=== PATIENT | female | born 1930 | race Caucasian/White ===

== ENCOUNTER → 2017-06-07 | Day surgery (SDC) | payer MEDICARE ==
[2017-06-03 15:55] LABS: BASOPHILS % 0.5 % (0.0-1.0); EOSINOPHILS # (AUTO) 0.1 (0.0-0.4); EOSINOPHILS % 1.6 % (0.0-6.0); HEMATOCRIT 39.4 % (34.2-44.1); HEMOGLOBIN 13.2 g/dL (12.0-16.0); LYMPHOCYTES % 26.5 % (18.0-39.1); MEAN CORPUSCULAR HEMOGLOBIN 33.3 pg (28-32); MEAN CORPUSCULAR HGB CONC 33.5 g/dL (31-35); MEAN CORPUSCULAR VOLUME 99.5 fL (81-99); MONOCYTES # (AUTO) 0.5 (0.2-0.8); MONOCYTES % 6.4 % (4.4-11.3); NEUTROPHILS # (AUTO) 4.8 (2.1-6.9); NEUTROPHILS % 64.7 % (38.7-80.0); PLATELET COUNT 182 x10e3/uL (140-360); RED BLOOD COUNT 3.96 x10e6/uL (3.6-5.1); RED CELL DISTRIBUTION WIDTH 11.9 % (11.7-14.4)
[~2017-06-07] MED LIST: ALIGN PO; BUTALBITAL-ASA1 EACH PO; CELEBREX200 MG PO; CYCLOBENZAPRINE PO; CYMBALTA60 MG PO; DETROL1 MG PO; FISH OIL 1,2001 EAC1 PO; FLEXERIL10 MG PO; FOLIC ACID PO; GLUCOSAMINE CH1 EAC5 PO; OS-CAL 500+D T1 EACH PO; PENTASA500 MG OD; PROPOFOL IV EMULSION 10 MG/ML 50 ML VIAL ONE; VIT B PO; VIT B12 INJ; VIT D3 PO; ZESTRIL20 MG PO; [UNRECOGNIZED DRUG - OTHER] PO
== END | disposition home or self-care (01) ==
LOC: OR 06:34
PROVIDERS: ATTEND Internal Medicine Gastroenterology
DX: K50.918 Crohn's disease, unspecified, with other complication (principal); D12.2 Benign neoplasm of ascending colon; K63.3 Ulcer of intestine; Z98.0 Intestinal bypass and anastomosis status; M19.90 Unspecified osteoarthritis, unspecified site; I10 Essential (primary) hypertension; I49.3 Ventricular premature depolarization; Z01.810 Encounter for preprocedural cardiovascular examination; Z01.812 Encounter for preprocedural laboratory examination
CPT/HCPCS: 36415; 45380; 45384; 85025; 88305; 93005

== ENCOUNTER 2017-07-30 19:22 | Inpatient (IN) | payer MEDICARE ==
[~2017-07-30] VITALS: Ht 162.6 cm; Wt 56.7 kg
[~2017-07-30 19:22] MED LIST changes: -PROPOFOL IV EMULSION 10 MG/ML 50 ML VIAL ONE
[2017-07-30] MEDS ORDERED: SODIUM CHLORIDE 0.9% 1000ML 1,000 ML IV STA (19:55)
[2017-07-30] MEDS ORDERED: PANTOPRAZOLE 40 MG 10ML VIAL IV STA (19:55)
[2017-07-30 20:00] VITALS: BP 130/70
[2017-07-30] MEDS ORDERED: ONDANSETRON HCL 4 MG ORAL DISINTEGRATING TAB PO ONE (20:00)
[2017-07-30 20:12] LABS: BASOPHILS % 0.4 % (0.0-1.0); EOSINOPHILS # (AUTO) 0.1 (0.0-0.4); EOSINOPHILS % 1.4 % (0.0-6.0); HEMATOCRIT 40.4 % (34.2-44.1); HEMOGLOBIN 13.6 g/dL (12.0-16.0); LYMPHOCYTES # (AUTO) 2.2 (1.0-3.2); MEAN CORPUSCULAR HGB CONC 33.7 g/dL (31-35); MEAN CORPUSCULAR VOLUME 98.1 fL (81-99); MONOCYTES # (AUTO) 0.5 (0.2-0.8); MONOCYTES % 6.2 % (4.4-11.3); NEUTROPHILS % 63.7 % (38.7-80.0); PLATELET COUNT 141 x10e3/uL (140-360); RED BLOOD COUNT 4.12 x10e6/uL (3.6-5.1)
[2017-07-30 20:22] LABS: INR 1.02; PROTHROMBIN TIME 12.6 seconds (11.9-14.5)
[2017-07-30 20:23] LABS: PARTIAL THROMBOPLASTIN TIME 24.1 seconds (23.8-35.5)
[2017-07-30 20:35] LABS: ALANINE AMINOTRANSFERASE 16 IU/L (0-55); ALBUMIN 3.7 g/dL (3.5-5.0); ALBUMIN/GLOBULIN RATIO 1.3 (0.8-2.0); ALKALINE PHOSPHATASE 56 IU/L (40-150); ANION GAP 10.7 mmol/L (8-16); BLOOD UREA NITROGEN 21 mg/dL (7-26); BUN/CREATININE RATIO 25 (6-25); CALCIUM 9.4 mg/dL (8.4-10.2); CARBON DIOXIDE 27 mmol/L (22-29); CHLORIDE 104 mmol/L (98-107); CREATINE KINASE 64 IU/L (29-168); CREATININE, SERUM 0.85 mg/dL (0.57-1.11); EST GLOMERULAR FILTRATION RATE > 60 ML/MIN (60-); GLUCOSE 110 mg/dL (74-118); LIPASE 31 U/L (8-78); MAGNESIUM 1.5 MG/DL (1.3-2.1); POTASSIUM 3.7 mmol/L (3.5-5.1); SODIUM 138 mmol/L (136-145)
[2017-07-30 20:54] LABS: THYROID STIMULATING HORMONE 4.599 uIU/mL (0.350-4.940)
--- NOTE | 2017-07-30 21:03 | Diagnostic Imaging Report ---
History: Vertigo Comparison studies: Head CT on 01/05/2015 Technique: Axial images were obtained from the skull base to the vertex. Coronal and sagittal reconstructions obtained from the axial data. Findings: Scalp/skull: No abnormalities. No fractures, blastic or lytic lesions. Extra-axial spaces: No masses. No fluid collections. Brain sulci: Appropriate for age. Brain sulci: Mildly prominent. Ventricles: Mild compensatory dilatation. No hydrocephalus. Parenchyma: Subtle hypodensities in the supratentorial white matter are small vessel ischemic changes. No masses, hemorrhage, acute or chronic cortical vascular insults. Sellar/suprasellar region: No abnormalities Craniocervical junction: Patent foramen magnum. No Chiari one malformation. Incidental atherosclerotic calcifications in the carotid siphons. IMPRESSION: No acute abnormalities. No changes when compared to the head CT on 01/05/2015. Persistent findings: 1. Mild generalized volume loss. 2. Mild supratentorial white matter small vessel ischemic changes. Preliminary report provided July 30, 2017 at 2102 hours Signed by: Dr. Triston Padilla M.D. on 07/30/2017 11:09 PM
[2017-07-30] MEDS ORDERED: ASPIRIN 81 MG CHEW TAB PO ONE (21:15)
--- NOTE | 2017-07-30 21:26 | Diagnostic Imaging Report ---
CHEST SINGLE (PORTABLE), 07/30/2017 7:55 PM Technique: CHEST SINGLE (PORTABLE) Comparison: 05/23/2008 Clinical history: Nausea vomiting diarrhea Findings: See Impression Impression: 1. Stable cardiomediastinal silhouette. 2. Large lung volumes versus hyperinflation. Mild bibasilar opacities which may be due to atelectasis/scarring or aspiration. Recommend follow-up upright PA and lateral when able. 3. No effusion or pneumothorax. Signed by: Dr Carmen Aparicio MD on 07/30/2017 9:22 PM
[2017-07-30 21:37] LABS: BILIRUBIN,URINE NEGATIVE (NEGATIVE); CLARITY,URINE CLEAR (CLEAR); COLOR,URINE YELLOW (YELLOW); KETONES,URINE NEGATIVE (NEGATIVE); LEUKOCYTE ESTERASE ,URINE NEGATIVE (NEGATIVE); NITRITE,URINE NEGATIVE (NEGATIVE); PROTEIN,URINE DIPSTICK NEGATIVE (NEGATIVE); URINE UROBILINOGEN 0.2 mg/dL (0.2 - 1)
[2017-07-30 21:48] LABS: BACTERIA,URINE FEW /HPF; EPITHELIAL CELLS,URINE RARE /LPF; RBC,URINE 0-5 /HPF (0-5); WBC,URINE (MAN) 0-5 /HPF (0-5)
[2017-07-30] MEDS ORDERED: ACETAMINOPHEN 325 MG TAB PO PRN (22:30)
--- OUTSIDE RECORDS SUMMARY | 2017-07-30 22:42 | XMS REPORT ---
Author [facility] Address Unknown Phone Unavailable Care Team Providers Care Assistant Director Of Security Name Role Phone ASHLEY BRISCOE Unavailable Unavailable Problems This patient has no known problems. Allergies, Adverse Reactions, Alerts This patient has no known allergies or adverse reactions. Medications This patient has no known medications. Results Test Description Test Time Test Comments Text Results Atomic Results Result Comments CHEST SINGLE (PORTABLE) [place] [address] Patient Name: KEISHA MARR MR #: [id number] : 1930 Age/Sex: 86/F Req #: [id number] Adm Physician: Ordered by: ASHLEY BRISCOE MD Report #: [id number] Location: ER Room/Bed: Procedure: [id number] DX/CHEST SINGLE (PORTABLE) Exam Date: 07/30/17 Exam Time: 2039 REPORT STATUS: Signed CHEST SINGLE ( PORTABLE), 07/30/2017 7:55 PM Technique: CHEST SINGLE (PORTABLE) Comparison: 05/23/2008 Clinical history: Nausea vomiting diarrhea Findings : See Impression Impression: 1. Stable cardiomediastinal silhouette. 2. Large lung volumes versus hyperinflation. Mild bibasilar opacities which may be due to atelectasis/scarring or aspiration. Recommend follow-up upright PA and lateral when able. 3. No effusion or pneumothorax. Signed by: Dr Hesham Aparicio MD on 07/30/2017 9:22 PM Dictated By: HESHAM APARICIO MD 21 Transcribed By: KHUSHBU on 07/30/172121 COPY TO: ASHLEY BRISCOE MD
[2017-07-31] VITALS (9 sets, daily range): BP systolic 130–179; BP diastolic 65–78
[2017-07-31] MEDS: SODIUM CHLORIDE 0.9% 1000ML 1,000 ML IV SCH ×3 (00:29→17:07)
--- NOTE | 2017-07-31 00:32 | Diagnostic Imaging Report ---
ADDENDUM #1 The extracranial segments of the nondominant left vertebral artery are not visualized. The segments are occluded based on the cervical CTA obtained on 07/30/2017. Signed by: Dr. Triston Padilla M.D. on 08/04/2017 12:01 PM ORIGINAL REPORT History: Vertigo Comparison studies: None Technique: 2-D xoum-kw-mvkazq cervical. 3-D qgaf-mj-bsmpks intracranial. Contrast: None Findings: Aortic arch: Obscured by artifacts. Common carotid arteries: Origins obscured by artifacts. Otherwise, no flow abnormalities. Carotid bulbs: No flow abnormalities Internal carotid arteries: No flow abnormalities in spite of artifacts Vertebral arteries: Origins obscured by artifacts. Cannot adequately evaluate in the cervical region. The intracranial segments are tortuous but patent. Basilar artery: No flow abnormalities. Posterior cerebral arteries: No flow abnormalities. Anatomical variants: Acom: Not visualized Pcom: Not visualized Vertebral arteries: Right slightly dominant IMPRESSION: No cervical or intracranial abnormalities in spite of motion artifacts Signed by: Dr. Triston Padilla M.D. on 07/31/2017 12:28 AM
--- NOTE | 2017-07-31 00:32 | Diagnostic Imaging Report ---
ADDENDUM #1 The extracranial segments of the nondominant left vertebral artery are not visualized. The segments are occluded based on the cervical CTA obtained on 07/30/2017. Signed by: Dr. Triston Padilla M.D. on 08/04/2017 12:01 PM ORIGINAL REPORT History: Vertigo Comparison studies: None Technique: 2-D ptnk-pw-cxsvia cervical. 3-D usqe-yk-buzofq intracranial. Contrast: None Findings: Aortic arch: Obscured by artifacts. Common carotid arteries: Origins obscured by artifacts. Otherwise, no flow abnormalities. Carotid bulbs: No flow abnormalities Internal carotid arteries: No flow abnormalities in spite of artifacts Vertebral arteries: Origins obscured by artifacts. Cannot adequately evaluate in the cervical region. The intracranial segments are tortuous but patent. Basilar artery: No flow abnormalities. Posterior cerebral arteries: No flow abnormalities. Anatomical variants: Acom: Not visualized Pcom: Not visualized Vertebral arteries: Right slightly dominant IMPRESSION: No cervical or intracranial abnormalities in spite of motion artifacts Signed by: Dr. Triston Padilla M.D. on 07/31/2017 12:28 AM
--- NOTE | 2017-07-31 00:54 | Diagnostic Imaging Report ---
History: Vertigo Comparison studies: Head CT on 07/30/2017 Technique: Sagittal T2; axial DWI, FLAIR, MPGR, T1, Coronal FLAIR. Intravenous contrast: None Findings: Scalp: Normal in signal . No masses . Bone marrow: Normal in signal intensity. Extra-axial: No masses or fluid collections. Brain sulci: Appropriate for age. Ventricles: Normal in size . No hydrocephalus . Parenchyma: A 5 mm focus of restricted diffusion, in the posterior peripheral left cerebellum, is focal acute nonhemorrhagic vascular insult beyond the scope of resolution for the previous head CT without contrast. Multiple scattered T2 FLAIR hyperintense foci in the supratentorial white matter, kurt and cerebellum are nonspecific small vessel ischemic changes. No masses, hemorrhage, acute or chronic cortical ischemic insults. Suprasellar region: No abnormalities. Craniocervical junction: No abnormalities. Patent foramen magnum. No Chiari one malformation. Vessels: Normal flow-voids in the arteries and sinuses. IMPRESSION: 1. Focal 5 mm nonhemorrhagic acute vascular insult in the left peripheral cerebellum has compromised a peripheral branch of the left pica. Dr. Woody notified of the findings on 07/31/2017 at 0024 hours 2. No additional vascular interval or additional acute abnormalities. Chronic findings: Moderate supratentorial white matter ischemic changes Signed by: Dr. Triston Padilla M.D. on 07/31/2017 12:51 AM
[2017-07-31 06:49] LABS: BASOPHILS % 0.5 % (0.0-1.0); EOSINOPHILS # (AUTO) 0.1 (0.0-0.4); EOSINOPHILS % 1.4 % (0.0-6.0); HEMATOCRIT 37.4 % (34.2-44.1); HEMOGLOBIN 12.5 g/dL (12.0-16.0); LYMPHOCYTES # (AUTO) 1.8 (1.0-3.2); LYMPHOCYTES % 28.5 % (18.0-39.1); MEAN CORPUSCULAR HEMOGLOBIN 32.5 pg (28-32); MEAN CORPUSCULAR HGB CONC 33.4 g/dL (31-35); MEAN CORPUSCULAR VOLUME 97.1 fL (81-99); MONOCYTES # (AUTO) 0.5 (0.2-0.8); MONOCYTES % 7.9 % (4.4-11.3); NEUTROPHILS # (AUTO) 3.9 (2.1-6.9); NEUTROPHILS % 61.5 % (38.7-80.0); PLATELET COUNT 148 x10e3/uL (140-360); RED BLOOD COUNT 3.85 x10e6/uL (3.6-5.1)
[2017-07-31 07:11] LABS: ALANINE AMINOTRANSFERASE 13 IU/L (0-55); ALBUMIN 3.2 g/dL (3.5-5.0); ALBUMIN/GLOBULIN RATIO 1.2 (0.8-2.0); ALKALINE PHOSPHATASE 51 IU/L (40-150); ANION GAP 10.7 mmol/L (8-16); BLOOD UREA NITROGEN 14 mg/dL (7-26); BUN/CREATININE RATIO 20 (6-25); CALCIUM 8.6 mg/dL (8.4-10.2); CARBON DIOXIDE 26 mmol/L (22-29); CHLORIDE 107 mmol/L (98-107); CHOL/HDL RATIO 3.3 (3.0-3.6); CHOLESTEROL 135 MD/DL (0-199); EST GLOMERULAR FILTRATION RATE > 60 ML/MIN (60-); GLUCOSE 81 mg/dL (74-118); HDL CHOLESTEROL 41 MG/DL (40-60); LDL CHOLESTEROL 60 MG/DL (60-130); MAGNESIUM 1.4 MG/DL (1.3-2.1); POTASSIUM 3.7 mmol/L (3.5-5.1); SODIUM 140 mmol/L (136-145); TRIGLYCERIDES 172 MG/DL (0-149)
[2017-07-31 07:13] LABS: CREATINE KINASE 53 IU/L (29-168)
[2017-07-31] MEDS: FAMOTIDINE 20 MG/2 ML VIAL IV SCH ×2 (08:30→21:25)
[2017-07-31] MEDS: ASPIRIN 325 MG TAB EC PO SCH (08:31)
[2017-07-31] MEDS ORDERED: LISINOPRIL 2.5 MG TAB PO SCH (12:00)
[2017-07-31] MEDS: MESALAMINE 500 MG CAPCR PO SCH ×3 (13:03→21:25)
[2017-07-31 15:05] LABS: CREATINE KINASE MB 1.4 ng/mL (0-5.0)
--- NOTE | 2017-07-31 15:50 | Consultation ---
DATE OF CONSULTATION: July 31, 2017 NEUROLOGY CONSULT HISTORY OF PRESENT ILLNESS: Ms. Ibarra is an 86-year-old right-hand dominant woman with no known vascular risk factors, who presented to the emergency center at [facility] on July 30, 2017, with impairment of gait and poor balance. On the evening of admission, the patient was at baptism when she experienced the abrupt onset of the following symptoms: Blurred vision, a heated sensation, nausea with vomiting, unsteady gait, and poor balance with drift towards the right. Ms. Ibarra called her daughter who came to the baptism, helped her mother into her car and took her to her home. The symptoms persisted while the patient was at her home, so her daughter placed her in the car and brought her to the emergency center at [facility] for further evaluation and treatment. Upon arrival in the emergency center, the patient was afebrile with a blood pressure of 171/91 mmHg with a pulse of 65 beats per minute. The patient's neurological examination was documented as follows: Alert. Oriented times 3. Mood/affect normal. Speech is normal. Cranial nerve deficit present, as evidenced by an EOM palsy on the right and ptosis on the right (right eye deviates laterally with upward gaze). Abnormal gait due to moderate ataxia. Unable to ambulate. No motor deficit. No sensory deficit. Reflexes normal. A CT of the brain without contrast was performed and did not show evidence of recent large territorial ischemia, hemorrhage, mass, or mass effect. Ms. Ibarra was admitted to [facility] for further evaluation and treatment. Ms. Ibarra does not report dysarthria, aphasia, weakness, numbness, or dizziness accompanying the above symptoms. She has not experienced similar symptoms previously. The patient does report poor balance for "years", but reports her gait and balance has significantly worsened since yesterday evening. REVIEW OF SYSTEMS: Blurred vision, nausea, vomiting, impairment of gait and balance. Otherwise, the 12-point review of systems is negative. PAST MEDICAL HISTORY: Kidney stones, prior history of migraines, Crohn's disease, idiopathic peripheral neuropathy. PAST SURGICAL HISTORY: Appendectomy in 1962, total hysterectomy in 1971, surgery for bowel blockage in 1969, left shoulder surgery in 1999, cervical fusion (C3-C5) in 2006. HOSPITALIZATIONS: Surgeries/procedures listed, childbirth times 3. FAMILY HISTORY: The patient's paternal and maternal grandparents are . Their medical histories are unknown. The patient's father is . His cause of and medical history are unknown. Ms. Ibarra reports her father when she was 10 years old. The patient's mother is at the age of 94 years. She had arthritis. The patient has 1 sister and 1 brother, both of whom are alive. The patient's sister has high blood pressure and high cholesterol. Her brother has coronary artery disease. The patient has 3 children, all of whom are alive. One daughter has migraines. Two daughters have osteoporosis. SOCIAL HISTORY: The patient is . She is a high school graduate. 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 Ms. Ibarra does not report current or prior tobacco, alcohol, or recreational drug use. HOME MEDICATIONS 1. Fioricet 1 capsule as needed for pain. 2. Celebrex 200 mg by mouth every other day, 3. Cymbalta 60 mg by mouth daily. 4. Glucosamine chondroitin I tablet by mouth daily. 5. Lisinopril 2.5 mg by mouth daily. 6. Mesalamine 500 mg by mouth 4 times daily. 7. Folic acid 1 mg by mouth daily. 8. 1 tablet by mouth daily. 9. Vitamin B12 1000 mcg injection monthly. 10. Vitamin B 100 mg by mouth daily. 11. Vitamin D3 one tab by mouth daily. The patient does not report taking aspirin, Plavix, or other antiplatelet/anticoagulant medications daily. ALLERGIES: NO KNOWN DRUG ALLERGIES. NO KNOWN FOOD ALLERGIES. NO KNOWN ALLERGIES TO LATEX. NO KNOWN ALLERGIES TO IODINE OR OTHER CONTRAST MATERIALS. PHYSICAL EXAMINATION VITAL SIGNS: Height 64 inches and weight 125 pounds. BMI is 21.5 kg per meter squared. Blood pressure 151/65 mmHg, pulse 71 beats per minute, respiratory rate 16 breaths per minute, oxygen saturation 95% on room air. GENERAL: The patient is awake and alert. Does not appear distressed. HEENT: Normocephalic and atraumatic. Pupils are equal, round and reactive to light. Moist mucous membranes. NECK: Supple. No appreciable thyromegaly. No appreciable carotid bruits. CARDIOVASCULAR: S1 and S2. Regular rate and rhythm. No murmurs, rubs, or gallops. RESPIRATORY: Clear to auscultation bilaterally. No wheezes, rhonchi or rales. EXTREMITIES: The skin is warm and dry. No clubbing, cyanosis or edema. The posterior tibial and dorsalis pedis pulses are 2+ and symmetric. SKIN: No rashes or lesions. NEUROLOGIC: Memory/attention: The patient is awake and alert, oriented to person, place, time, and situation. CRANIAL NERVES: Cranial nerve 1 is not tested. Cranial nerve II, III, IV, and : Pupils are equal and round, react briskly to light (from 4 mm to 2 mm). Extraocular movements intact. No nystagmus. Cranial nerve V: Sensation to light touch and pinprick is intact in the bilateral V1-V3 distributions. Strength of the temporalis and mastoid muscles is within normal limits. Cranial VII: The face is symmetric as are all facial movements. Strength is within normal limits. Cranial nerve VIII: Hearing is diminished to finger rub bilaterally. Cranial nerve IX and X: The soft palate elevates equally and symmetrically. Cranial nerve XI: Normal strength of the bilateral sternocleidomastoid and trapezius muscles. Cranial nerve XII: The tongue protrudes in the midline and moves symmetrically from side to side. STRENGTH: Bulk is normal. The patient is able to maintain both arms against gravity for more than 10 seconds each. She is able to maintain both legs against gravity for more than 5 seconds each. Strength is 5/5 in all muscles examined. Tone is normal. DEEP TENDON REFLEXES: Are 2+ and symmetric at the triceps, biceps, brachioradialis. And patellas. Deep tendon reflexes are absent and symmetric at the Achilles. Plantar responses are flexor bilaterally. Absent clonus. SENSATION: Intact to light touch and pinprick in both arms and both legs. CEREBELLAR: Zrjuyn-fnnt-erxbya and heel-ballesteros movements are intact without dysmetria or other impairment. Rapid alternating movements are mildly impaired on the right. GAIT: Deferred. SPEECH: Spontaneous speech is normal without appreciable dysarthria or aphasia. Repetition is intact. INVOLUNTARY MOVEMENTS: None. PRONATOR DRIFT: None. LABORATORY DATA: Sodium 140, potassium 3.7, chloride 107, carbon dioxide 26, anion gap 10.7. BUN 14, creatinine 0.7, estimated GFR greater than 60. BUN to creatinine ratio 20. Glucose 81. Calcium 8.6. Magnesium 1.4. Total bilirubin 1, AST 22, ALT 13, alkaline phosphatase 51, total protein 5.8. Albumin 3.2. Globulin 2.6. Albumin to globulin ratio 1.2. Creatinine kinase 6453. CK-MB 1.5 and 1.1. Troponin I less than 0.001, less than 0.001. Lipase 31. TSH 4.599. B-natriuretic peptide 51.5. Total cholesterol 135, triglycerides 172, LDL 60, HDL 41. CBC with differential and platelets reveals a white blood cell count of 6.34 with a normal differential. Hemoglobin and hematocrit are 12.5 and 37.4, respectively. Platelet count is 148,000. PT 12.6, INR 1.02 and PTT 24.1. Urinalysis was unremarkable. DIAGNOSTIC STUDIES: EKG on July 30, 2017, is normal sinus rhythm at [address] of the brain without contrast on July 30, 2017, no acute abnormalities. No changes when compared to the CT of the brain on January 05, 2015. Mild generalized volume loss. Mild supratentorial white matter small vessel ischemic changes. MRI of brain without contrast on July 30, 2017, on my review, there is a small area of acute ischemia of the peripheral left cerebellum. There is diffuse cerebral atrophy, appropriate for age. There is mild to moderate chronic small vessel ischemic disease. MRA of the brain and neck without contrast on July 30, 2017, there is no hemodynamically significant extra hyphen or intracranial atherosclerosis. ASSESSMENT AND PLAN: Ms. Ibarra is an 86-year-old right-hand dominant woman without diagnosed vascular risk factors admitted with an acute left peripheral cerebellar stroke. Her neurological examination is nonfocal. However, the patient did not ambulate as part of her neurological examination. The patient's laboratory data and diagnostic studies have been reviewed and are documented above. RECOMMENDATIONS: Are as follows: 1. Hemoglobin A1c. 2. Echocardiogram. 3. Aspirin 325 mg by mouth daily for stroke prophylaxis. 4. Allow permissive hypertension for 24-48 hours post stroke. May begin to normalize blood pressure tomorrow, August 01, 2017. 5. The patient's total and LDL cholesterol are at goal. However, numerous studies have demonstrated benefit of statin medications beyond the cholesterol lowering capabilities for stroke prophylaxis. Therefore, a very low-dose statin (simvastatin 10 mg by mouth at bedtime daily) will be prescribed for stroke prophylaxis. 6. Followup hemoglobin A1c. Tight glycemic control. 7. Speech and physical therapy consultations will be ordered. 8. GI prophylaxis with Pepcid 20 mg IV every 12 hours. DVT prophylaxis with Lovenox 40 mg subcutaneously daily. 9. Defer treatment of the remaining medical comorbidities to the primary and other services following the patient. Thank you for this consultation. I will continue to follow this patient while she remains in hospital. Time spent 50 minutes. Job#: [id number] PETE RODRIGUES
--- NOTE | 2017-07-31 16:26 | History and Physical ---
CLINICAL HISTORY: This is an 86-year-old white woman known to our service from previous evaluations. Admitted via the emergency room because of a left cerebellar stroke. This patient as history of Crohn disease treated with Pentasa by Dr. Savana Prajapati. There is history of unclear reasons taking Cymbalta. She denies any depression. On the day of admission while at [employer]azidism, she developed sudden dizziness associated with vomiting. She noticed incoordination. She came to the emergency room, was felt to perhaps also have a left 3rd nerve palsy. A CT scan of the head was negative. MRI showed left cerebellar stroke that was acute. The MRA of the head and MRA of the neck were negative. EKG showed no atrial fibrillation with normal sinus rhythm. She is being admitted for further evaluation and treatment. PAST MEDICAL HISTORY: Remarkable for the above-mentioned Crohn disease. She is taking an aspirin combination medication already together with butalbital and caffeine. She is taking Celebrex, Cymbalta, glucosamine chondroitin, folic acid, B12 injections, , vitamin D. She is also taking Pentasa and lisinopril as mentioned above. Past medical history is also remarkable for hypertension. PAST SURGICAL HISTORY: Past surgery included bowel surgery, hysterectomy, right shoulder surgery, appendectomy, cervical spine fusion, laparotomy. REVIEW OF SYSTEMS: Noncontributory. PERSONAL AND SOCIAL HISTORY: Denies drinking, smoking. FAMILY HISTORY: No malignancies. PHYSICAL EXAMINATION: GENERAL: She is alert, coherent. Appears to be comfortable. CARDIOVASCULAR: Jugular veins are not distended. S1 and S2 are regular. There are no appreciable murmurs. RESPIRATORY: Clear. ABDOMEN: Soft. Bowel sounds are present. EXTREMITIES: No cyanosis, clubbing or edema. LABORATORY: Studies as mentioned above. The white count is 7800, hemoglobin 13.6, platelet count 141,000. Urinalysis is unremarkable. INR is 1.02. Electrolytes are normal. BUN is 21. Creatinine is 0.85. Lipase 31. TSH 4.5. IMPRESSION: 1. Acute left cerebellar stroke with ataxia. 2. History of unsteadiness on her feet, requiring her to get up slowly. 3. History of hypertension, treated with lisinopril. 4. Dizziness and vomiting, result of the stroke. 5. Reactive hypertension. Probably does not require additional management. 6. Crohn's disease. 7. History of B12 deficiency, on chronic B12 injection. 8. Cymbalta but denying a history of depression. Possibly can be discontinued. RECOMMENDATIONS: Neurology consultation. Consider adding Plavix to her regimen. Physical therapy. Neurologic evaluation. Job#: [id number] EV cc:MD BONG BHATIA MD
[2017-07-31] MEDS: ONDANSETRON HCL 4 MG ORAL DISINTEGRATING TAB PO PRN (17:01)
[2017-07-31] MEDS: ENOXAPARIN SOD INJ 40 MG/0.4 ML SYR SC SCH (17:07)
[2017-07-31] MEDS: SIMVASTATIN 20 MG TAB PO SCH (21:25)
[2017-08-01] VITALS (7 sets, daily range): BP systolic 152–194; BP diastolic 70–88
[2017-08-01] MEDS: ONDANSETRON HCL 4 MG ORAL DISINTEGRATING TAB PO PRN ×3 (00:59→14:44)
[2017-08-01] MEDS ORDERED: LISINOPRIL 20 MG TAB PO ONE (01:15)
[2017-08-01] MEDS: SODIUM CHLORIDE 0.9% 1000ML 1,000 ML IV SCH ×2 (05:06→15:16)
[2017-08-01] MEDS ORDERED: LISINOPRIL 2.5 MG TAB PO SCH (09:00)
[2017-08-01] MEDS: MESALAMINE 500 MG CAPCR PO SCH ×6 (09:00→22:38)
[2017-08-01] MEDS ORDERED: LISINOPRIL 20 MG TAB PO SCH (09:00)
[2017-08-01] MEDS ORDERED: CLOPIDOGREL BISULFATE 75 MG TAB PO SCH (09:00)
[2017-08-01] MEDS: ASPIRIN 325 MG TAB EC PO SCH ×2 (09:16→13:58)
[2017-08-01] MEDS: LISINOPRIL 10 MG TAB PO SCH ×2 (09:16→09:46)
[2017-08-01] MEDS: FAMOTIDINE 20 MG/2 ML VIAL IV SCH ×2 (09:16→21:39)
--- NOTE | 2017-08-01 09:19 | Cardiology Report ---
DATE OF STUDY: July 30, 2017 ECHOCARDIOGRAM M-MODE: Normal chamber sizes. Left ventricular hypertrophy. Normal contractility. Normal mitral and aortic valves. No pericardial effusion. SECTOR SCAN: Normal chamber sizes. Mild left ventricular hypertrophy. Normal contractility. Normal mitral, aortic and tricuspid valves. No pericardial effusion. CARDIAC DOPPLER STUDY WITH COLOR: There are 2+ tricuspid regurgitation and 1+ mitral regurgitation. Pulmonary artery systolic pressure estimated at 26 mmHg. There is evidence of diastolic dysfunction. CONCLUSIONS 1. Mild left ventricular hypertrophy with ejection fraction of 65%. 2. Suggestion of impaired relaxation with diastolic dysfunction. 3. Mild mitral regurgitation. 4. Moderate tricuspid regurgitation. Job#: [id number] cc:MARIA EUGENIA MORELOS M.D.
--- NOTE | 2017-08-01 09:28 | Cardiology Report ---
DATE OF STUDY: August 01, 2017 DOPPLER SCAN OF CAROTIDS The left and right carotid arteries were interrogated using the duplex scanning method. Left carotid artery shows mild intimal thickening and plaquing without high-grade stenosis or flow impairment. Left vertebral flow appears to be occluded. Right carotid artery shows mild intimal thickening and plaquing without high-grade stenosis or flow impairment. Right vertebral flow appears to be antegrade. CONCLUSIONS 1. Occluded left vertebral artery. 2. Mild intimal thickening and plaquing bilaterally. 3. Right vertebral flow appears to be in normal direction bilaterally. Job#: [id number] RI cc: BONG WARD MD
--- NOTE | 2017-08-01 12:44 | Diagnostic Imaging Report ---
Examination: Cervical CT Angiogram with Contrast Clinical indication:Evaluate for carotid stenosis. Comparison studies:Intracranial and cervical MRA performed July 30, 2017. Technique: Axial images were obtained from the thoracic inlet. Coronal and sagittal images reconstructed from the axial data. Intravenous contrast: 100 cc of [id number]. Computer generated maximum intensity projection images were performed of the bilateral carotid bifurcations and the aortic arch with bilateral common carotid and cervical internal carotid arteries on a separate workstation. Degree of stenosis at the carotid bulbs, if present, will be calculated using NASCET criteria where the smallest diameter at the location of stenosis is compared to the diameter of the more distal non-diseased vessel lumen. Findings: Aortic arch and major vessels: Patent. Common carotid arteries: Patent. Cervical carotid bifurcations: Right: Patent. Left :Patent. Internal carotid arteries: Right: Patent. Distal cervical loop. Left: Patent. Distal cervical loop. Vertebral arteries: Patent on the right. Completely occluded from the distal V1 segment through V2 segment. The left V3 and V4 segments are opacified with contrast and is most probably from retrograde flow from the contralateral/right vertebral or basilar arteries. There is mild luminal irregularity of the right greater than left V3 segments, concerning for fibromuscular dysplasia. Additional findings: Anterior cervical discectomy and fusion from C3 through C6. IMPRESSION: 1. 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 2. 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 The above findings were discussed with Jennifer, nurse in care of Ms Ibarra, on 08/01/2017 at 1235 hours. Signed by: Dr. Kinjal De La Rosa M.D. on 08/01/2017 12:41 PM
[2017-08-01] MEDS ORDERED: IOPAMIDOL 370 MG/ML 200 ML INFUS..BTL INJ ONE (14:43)
[2017-08-01] MEDS ORDERED: SODIUM CHLORIDE 0.9% 50ML 50 ML ONE (14:43)
[2017-08-01] MEDS ORDERED: PROMETHAZINE 12.5MG/ NACL 0.9% 12.5 MG/50 ML BAG IV PRN (16:15)
[2017-08-01] MEDS: CLONIDINE HCL 0.1 MG TAB PO SCH (17:09)
[2017-08-01] MEDS: ENOXAPARIN SOD INJ 40 MG/0.4 ML SYR SC SCH (17:09)
--- NOTE | 2017-08-01 17:40 | Consultation ---
DATE OF CONSULTATION: August 01, 2017 REFERRING PHYSICIAN: Dr. Aurelio Aleman. I would like to thank Dr. Aleman for asking me to see Ms. Ibarra in consultation. REASON FOR CONSULTATION: 1. 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 2. Patient with history of migraine headaches. 3. Idiopathic peripheral polyneuropathy. HISTORY: An 86-year-old female who was in her normal state of health when she was admitted to this facility 2 days ago with impairment of gait and poor balance. The patient came to the hospital with some elevated blood pressure. The patient underwent workup and CT of the brain showed no acute abnormalities. MRI showed a small area of acute ischemia in the peripheral left cerebellar area. The patient has been started on therapy and still not back to baseline. I am being asked to evaluate for rehab needs. PAST MEDICAL HISTORY: Renal lithiasis, history of Crohn's disease, idiopathic peripheral neuropathy, migraine headaches. PAST SURGICAL HISTORY: Appendectomy, hysterectomy, left shoulder surgery, cervical fusion. FAMILY HISTORY: Positive for arthritis, hypertension, hyperlipidemia. SOCIAL HISTORY: Lives by herself in a one story home, and is otherwise independent. Danced and did yoga 2 times a week and walked around her neighborhood four times a week. Did not use any kind of assist device and was otherwise independent. HABITS: Nonsmoker and nondrinker. ALLERGIES: NO KNOWN DRUG ALLERGIES. White cell count 6.3. Hemoglobin 12.4, hematocrit 37.4, platelets 148,000, sodium 140, potassium 3.7, BUN 14, creatinine 4.7. She also had a carotid Doppler which showed occluded left vertebral artery, mild intimal thickening and plaquing bilaterally, right vertebral flow appears to be normal direction bilaterally. She had a head MRA which showed no cervical or intracranial abnormalities. Neck MRA showed no cervical or intracranial abnormalities. Review of therapy notes showed that she walks about 25 feet, slow and steady gait. for bed mobilities. She is still having some impairment with her coordination. In fact, when she turns her head sometimes she gets lightheaded/not quite dizzy but very similar feeling. PHYSICAL EXAMINATION VITAL SIGNS: Temperature 96.5, respirations 18, heart rate of 59, blood pressure 161/71. GENERAL: Awake, alert, oriented x3, in no apparent distress. HEENT: Eyes: Gaze is conjugate. Visual pinto are intact. Oral: Tongue is midline. NECK: Supple. HEART: Regular rate and rhythm. LUNGS: Clear. ABDOMEN: Nontender, nondistended. EXTREMITIES: Full range of motion of the arms as well as the legs. MANUAL MUSCLE TESTING: There is 5/5 strength in arms and legs bilaterally throughout. Xtmxpb-cflu-mdpdnk tracing is within normal limits. There is no increased tone with passive range of motion of the arms and legs. DTRs are 2+/4+ bilaterally. IMPRESSION 1. 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 2. Hypertension. 3. The patient with some history of neuropathy. 4. History of Crohn's disease. PLAN: The patient would make an excellent patient rehab candidate. She lives by herself and needs to be more functional. Her strength remains good and she should continue to improve overall. Will follow along with you. Thank so much again for allowing me to participate in the care of this very pleasant patient. Discussed with family and will check with insurance for transfer to inpatient rehab. Job#: [id number]
[2017-08-01] MEDS: SIMVASTATIN 20 MG TAB PO SCH (22:38)
[2017-08-02] VITALS: BP 135/63
[2017-08-02] MEDS: SODIUM CHLORIDE 0.9% 1000ML 1,000 ML IV SCH ×4 (00:30→20:30)
[2017-08-02 04:00] VITALS: BP 158/74
[2017-08-02 08:08] VITALS: BP 160/70
[2017-08-02] MEDS: FAMOTIDINE 20 MG/2 ML VIAL IV SCH ×2 (08:41→21:44)
[2017-08-02] MEDS: ASPIRIN 325 MG TAB EC PO SCH (08:41)
[2017-08-02] MEDS: CLONIDINE HCL 0.1 MG TAB PO SCH ×2 (08:42→16:55)
[2017-08-02] MEDS: LISINOPRIL 10 MG TAB PO SCH (08:42)
[2017-08-02] MEDS: MESALAMINE 500 MG CAPCR PO SCH ×4 (08:42→21:44)
[2017-08-02 11:54] VITALS: BP 132/63
[2017-08-02 16:10] VITALS: BP 168/72
[2017-08-02] MEDS: ENOXAPARIN SOD INJ 40 MG/0.4 ML SYR SC SCH (16:55)
[2017-08-02 20:00] VITALS: BP 144/67
[2017-08-02] MEDS: SIMVASTATIN 20 MG TAB PO SCH (21:44)
[2017-08-03] VITALS (7 sets, daily range): BP systolic 148–165; BP diastolic 68–77
[2017-08-03] MEDS: SODIUM CHLORIDE 0.9% 1000ML 1,000 ML IV SCH ×2 (07:30→16:30)
[2017-08-03] MEDS: FAMOTIDINE 20 MG/2 ML VIAL IV SCH ×2 (08:27→21:27)
[2017-08-03] MEDS: CLONIDINE HCL 0.1 MG TAB PO SCH ×2 (08:27→17:00)
[2017-08-03] MEDS: ASPIRIN 325 MG TAB EC PO SCH (08:27)
[2017-08-03] MEDS: LISINOPRIL 10 MG TAB PO SCH ×2 (08:28→10:15)
[2017-08-03] MEDS: MESALAMINE 500 MG CAPCR PO SCH ×4 (09:00→21:27)
[2017-08-03] MEDS: ENOXAPARIN SOD INJ 40 MG/0.4 ML SYR SC SCH (17:00)
[2017-08-03] MEDS: SIMVASTATIN 20 MG TAB PO SCH (21:27)
[2017-08-04] VITALS: BP 156/68
[2017-08-04] MEDS: SODIUM CHLORIDE 0.9% 1000ML 1,000 ML IV SCH (03:26)
[2017-08-04 04:00] VITALS: BP 152/71
[2017-08-04 08:00] VITALS: BP 171/75
[2017-08-04] MEDS: ASPIRIN 325 MG TAB EC PO SCH (08:15)
[2017-08-04] MEDS: LISINOPRIL 10 MG TAB PO SCH (08:15)
[2017-08-04] MEDS: FAMOTIDINE 20 MG/2 ML VIAL IV SCH (08:15)
[2017-08-04] MEDS: MESALAMINE 500 MG CAPCR PO SCH ×2 (08:15→12:11)
[2017-08-04] MEDS ORDERED: CLONIDINE HCL 0.2 MG TAB PO SCH (09:00)
[2017-08-04] MEDS ORDERED: CLONIDINE HCL 0.1 MG TAB PO SCH (09:00)
[2017-08-04 10:00] VITALS: BP 132/75
[2017-08-04] MEDS ORDERED: AMLODIPINE BESYLATE 5 MG TAB PO ONE ×2 (10:15→10:30)
[2017-08-04] MEDS ORDERED: LOVENOX40 MG/0.4 SC (10:19)
[2017-08-04] MEDS ORDERED: ASPIRIN ENTERI325 MG PO (10:19)
[2017-08-04] MEDS ORDERED: NORVASC5 MG PO (10:19)
[2017-08-04] MEDS ORDERED: SIMVASTATIN20 MG PO (10:19)
[2017-08-04] MEDS ORDERED: ACETAMINOPHEN325 M1 PO (10:19)
[2017-08-04] MEDS ORDERED: FAMOTIDINE20 MG/2 ML IV (10:19)
[2017-08-04] MEDS ORDERED: LISINOPRIL10 MG PO (10:19)
[2017-08-04] MEDS ORDERED: CATAPRES0.2 MG PO (10:19)
[2017-08-04 12:20] VITALS: BP 123/57
--- NOTE | 2017-08-04 14:46 | Discharge Summary ---
CLINICAL HISTORY: This is an 86-year-old white woman admitted via the emergency room because of left cerebellar CVA. Please refer my previous dictation concerning details of current illness, past medical history, personal and social history, family history, review of systems, physical examination, initial laboratory studies. HOSPITAL COURSE: The patient was found to have an occluded left cerebral artery with additional disease further distally. She had an acute left cerebellar CVA with ataxia. She had persistent vomiting, nausea and unsteadiness, and eventually improved. She needed rehabilitation. She was sent to Dr. Blake Solis at [place]. Insurance gave approval. The patient was accordingly transferred. DISCHARGE DIAGNOSES 1. 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 2. Hypertension. 3. Crohn's disease. 4. History of B12 deficiency. During this hospitalization, the patient denied any depression. Cymbalta was discontinued at her request. DISCHARGE MEDICATIONS: Otherwise are: 1. Enoxaparin to prevent DVT at low dose. 2. Simvastatin 3. Clonidine. 4. Mesalamine. 5. Famotidine. 6. Tylenol. 7. Lisinopril 20 mg per day. FREDDIE TAN MD Job#: [id number] RI cc:MARIA EUGENIA MORELOS M.D.
[2017-08-05] MEDS ORDERED: AMLODIPINE BESYLATE 5 MG TAB PO SCH (09:00)
== END 2017-08-04 15:28 | DRG 65 ==
LOC: ER 19:22 → MED/SURG 22:39
PROVIDERS: ADMIT Internal Medicine Cardiovascular Disease; ATTEND Internal Medicine Cardiovascular Disease
CPT/HCPCS: 36415; 70450; 70498; 70544; 70547; 70551; 71045; 80053; 80061; 81001; 82550; 82553; 83036; 83690; 83735; 83880; 84443; 84484; 85025; 85610; 85730; 87086; 93005; 93306; 93880; 96360; 96374; 99284; J1650; J2550; J7030; Q9967

== ENCOUNTER → 2017-12-20 | Outpatient (CLI) | payer MEDICARE ==
[~2017-12-20] MED LIST changes: +ACETAMINOPHEN325 M1 PO; +ASPIRIN ENTERI325 MG PO; +CATAPRES0.2 MG PO; +FAMOTIDINE20 MG/2 ML IV; +LISINOPRIL10 MG PO; +LOVENOX40 MG/0.4 SC; +NORVASC5 MG PO; +SIMVASTATIN20 MG PO
--- NOTE | 2017-12-20 16:16 | Diagnostic Imaging Report ---
EXAMINATION: MRI of the brain without contrast. HISTORY: Cerebellar ataxia, balance for the last 2 weeks COMPARISON: Brain MRI of 07/30/2017 TECHNIQUE: Sagittal T2; axial DWI, T2, FLAIR, T1-IR, T2 gradient echo; coronal FLAIR. IMAGE QUALITY: Adequate. FINDINGS: Parenchyma: 1. Persistent xzay-do-jzvhsdhp supra and infratentorial chronic microvascular ischemic changes and small chronic lacunar infarcts in the bilateral thalami and small cortical infarcts in the bilateral cerebellar hemispheres. 2. No mass, hemorrhage, acute infarcts. Skull: Unremarkable. Vessels: Expected flow voids present in the major arteries and dural sinuses. Extra-axial spaces: No abnormal signal intensity or mass effect. Brain volume: Within normal limits for age. Ventricles: No hydrocephalus or displacement. Foramen magnum: Unremarkable. Sella: Unremarkable. Paranasal / mastoid sinuses: No significant inflammatory disease. Incidental findings: Partially visualized degenerative and postsurgical changes of the cervical spine. IMPRESSION: 1. No acute infarct. 2. Unchanged moderate chronic microvascular ischemic changes and small chronic infarcts. Signed by: Dr. Clare Morales M.D. on 12/20/2017 4:13 PM
== END ==
LOC: MRI 14:23
PROVIDERS: ATTEND Internal Medicine Cardiovascular Disease
DX: G32.81 Cerebellar ataxia in diseases classified elsewhere (principal)
CPT/HCPCS: 70551

== ENCOUNTER 2018-06-04 10:55 | Observation (INO) | payer MEDICARE ==
[~2018-06-04] VITALS: Ht 162.6 cm; Wt 56.7 kg
--- OUTSIDE RECORDS SUMMARY | 2018-06-04 10:58 | XMS REPORT | CCD ---
Author Author Auto Generated Organization [facility] Address Unknown Phone Unavailable Care Team Providers Care Maintenance Technician Name Role Phone Nuha Louis CP Allergies, Adverse Reactions, Alerts Substance Reaction Status NKDA Active
--- OUTSIDE RECORDS SUMMARY | 2018-06-04 10:58 | XMS REPORT ---
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
--- OUTSIDE RECORDS SUMMARY | 2018-06-04 10:58 | XMS REPORT ---
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
--- OUTSIDE RECORDS SUMMARY | 2018-06-04 10:58 | XMS REPORT | Summary of Care ---
Author Author [facility] [place] Organization [facility] [place] Address Unknown Phone Unavailable Encounter HQ Encntr_alias(FIN) [id number] Date(s): 04/03/15 - 04/03/15 [facility] [place] [address], [place] [address] [phone] Discharge Disposition: Home Attending Physician: Osmany Gallagher MD Vital Signs No data available for this section Problem List No data available for this section Allergies, Adverse Reactions, Alerts Substance Reaction Severity Status NKDA Active Medications No data available for this section Results No data available for this section Immunizations No data available for this section Procedures No data available for this section Social History No data available for this section Assessment and Plan No data available for this section
--- OUTSIDE RECORDS SUMMARY | 2018-06-04 10:58 | XMS REPORT ---
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
--- OUTSIDE RECORDS SUMMARY | 2018-06-04 10:58 | XMS REPORT | Continuity of Care Document ---
Author Author [facility] Address Unknown Phone Unavailable Problems Problem Status Onset Date Classification Date Reported Comments Source R51 - HEADACHE Active 03/24/2015 [facility] [place] SPEECH PHONATION DYSPHONIA 784.42, VOICAL CORD DISCORDE Active 03/21/2000 [facility] SPEECH PHONATION DYSPHONIA 784.42, VOICA Active 03/21/2000 [facility] Cervical radiculopathy Active Problem 02/24/2017 Simon Mary Cervical postlaminectomy syndrome Active Problem 02/24/2017 Simon Hernandez Cervical facet joint syndrome Active Problem 02/24/2017 Simon Hernandez Chronic pain syndrome Active Problem 02/24/2017 Simon Hernandez Cervical spondylosis Active Problem 02/24/2017 Simon Hernandez Degeneration of cervical disc without myelopathy Active Problem 02/24/2017 Simon Hernandez Unilateral primary osteoarthritis, right knee Active Problem 06/02/2018 Simon Hernandez Osteopenia Active Problem 06/02/2018 Simon Hernandez Generalized osteoarthritis Active Problem 06/02/2018 Simon Hernandez Vitamin D deficiency Active Problem 06/02/2018 Simon Hernandez Disorder of bone density and structure, unspecified Active Problem 06/02/2018 Simon Hernandez bed bug exterminator use of non-steroidal anti-inflammatories (NSAID) Active Problem 06/02/2018 Simon Hernandez Neck pain Active Problem 06/02/2018 Simon Hernandez Osteoarthritis of right knee Active Problem 06/02/2018 Simon Hernandez Enthesopathy of knee Active Problem 06/02/2018 Simon Hernandez Knee pain, right Active Problem 06/02/2018 Simon Hernandez Inflammatory osteoarthritis Active Problem 06/02/2018 Simon Hernandez Medications Medication Details Route Status Patient Instructions Ordering Provider Order Date Source Alendronate Sodium TAKE 1 TABLET BY MOUTH WEEKLY Orally Active 35 MG Orally once a week El 05/31/2018 Simon Hernandez Hydroxychloroquine Sulfate 1 tablet with food or milk Orally Active 200 MG Orally Once a day El 05/23/2018 Simon Hernandez Alendronate-35 mg weekly one tablet orally Active 35 mg orally once a week El 07/01/2017 Simon Hernandez Cymbalta 1 capsule Orally Active 60 MG Orally Once a day El 06/03/2017 Simoncarmen Hernandez Cymbalta 1 capsule Orally Active 60 MG Orally Once a day El 05/31/2017 Simon Hernandez Vitamin D as directed Orally Active 31680 U Orally [facility] Simon Hernandez Celebrex 1 capsule Orally Active 200 MG Orally Once a day [facility] Simon Hernandez Cymbalta 1 capsule Orally Active 60 MG Orally Once a day [facility] Simon Hernandez Acetaminophen-Codeine #3 1 tablet as needed Orally Active 300- 30 MG Orally every 8 hrs PRN [facility] Simon Hernandez Amlodipine Besylate 1 tablet Orally Active 2.5 MG Orally Once a day [facility] Simon Hernandez Pentasa 2 capsules Orally Active 500 MG Orally Four times a day [facility] Sm[facility] Hernandez Folic Acid 1 tablet Orally Active 1 MG Orally Once a day [facility] Simon Hernandez Oxybutynin Chloride ER 1 tablet Orally Active 10 MG Orally Once a day [facility] Simon Hernandez Align as directed Orally Active Orally [facility] Simon Hernandez Alendronate Sodium TAKE 1 TABLET BY MOUTH ONCE A WEEK NA Active 35 MG [facility] Simon Hernandez Celebrex TAKE ONE CAPSULE BY MOUTH EVERY DAY WITH FOOD NA Active 200 MG [facility] Simon Hernandez Glucosamine Chond Complex/MSM 2 tablets Orally Active Orally once a day [facility] Simon Hernandez Oxybutynin Chloride ER as directed Orally Active 10 MG Orally at bedtime [facility] Simon Hernandez Calcium 1200 1 tablet with a meal Orally Active 4543-9579 MG- UNIT Orally Once a day [facility] Simon Hernandez Cymbalta TAKE ONE CAPSULE BY MOUTH EVERY DAY NA Active 60 MG [facility] Simon Hernandez Lisinopril 1 tablet Orally Active 2.5 MG Orally HOLD [facility] Simon Hernandez Multi-Vitamin 1 tablet Orally Active Orally once a day [facility] Simon Hernandez Align 1 capsule Orally Active 4 MG Orally once a day [facility] Simon Hernandez Pentasa 2 capsules Orally Active 500 MG Orally Four times a day [facility] Simon Hernandez Vitamin B-12 15 ml Orally Active 1000 MCG/15ML Orally Once a day [facility] Simon Hernandez Folic Acid 1 tablet Orally Active 1 MG Orally Once a day [facility] Simon Hernandez Vitamin D-3 1 capsule Orally Active 1000 UNIT Orally Once a day [facility] Simon Hernandez Aspirin 1 tablet Orally Active 325 MG Orally Once a day [facility] Simon Hernandez Cguelmkffr-XGJZ-Tzwhucia 1 capsule as needed Orally Active 50-325-40 MG Orally every 4 hrs [facility] Simon Hernandez Pravastatin Sodium 1 tablet Orally Active 20 MG Orally Once a day [facility] Simon Hernandez Famotidine 1 tablet at bedtime Orally Active 20 MG Orally twice a day [facility] Simon Hernandez Clonidine HCl 1 tablet Orally Active 0.2 MG Orally Once a day [facility] Simon Hernandez Simvastatin 1 tablet in the evening Orally Active 10 MG Orally Once a day [facility] Simon Hernandez Allergies, Adverse Reactions, Alerts Substance Category Reaction Severity Reaction type Status Date Reported Comments Source N.K.D.A. Adverse Reaction Info Not Available Adverse Reaction Active 05/23/2018 Simon Hernandez Immunizations Immunization Date Given Site Status Last Updated Comments Source Results Order Name Results Value Reference Range Date Interpretation Comments Source Brain w/wo contrast MRI Brain w/wo contrast MRI EXAM: MRI OF THE BRAIN WITHOUT AND WITH CONTRAST DATE:Apr 03, 2015 03:07:43 PM . CLINICAL INDICATION: Headache, neck pain. COMPARISON: None available. TECHNIQUE : Multiplanar imaging of the brain was obtained both prior to and after uncomplicated IV administration of 12 cc Omniscan FINDINGS: There is no hemorrhage, mass lesion, extra axial collection, cerebral edema, or mass effect. Diffusion sequences are normal. There is moderate generalized cortical and deep white matter volume loss with passive enlargement of the ventricles and sulci. Volume loss is most pronounced in the parietal lobes. There are moderate periventricular chronic small vessel ischemic changes. There is no cortical signal normality. The lateral ventricles, cortical sulci, and basal cisterns are patent. The cerebellar tonsils are above foramen magnum. The sella is normal. The vascular flow-voids are unremarkable. There is no abnormal enhancement. The paranasal sinuses, orbits and mastoids are unremarkable. 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 IMPRESSION: 1. No worrisome intracranial finding to explain headaches. 2. Parietal-dominant generalized volume loss with moderate microangiopathic white matter changes. 3. Right TMJ arthropathy 04/03/2015 - - Read by: Jose Lopez MD Dictated Date/time: 04/04/15 06:53 Electronically Signed by: Jose Lopez MD 04/04/15 08:08 FINAL REPORT PARTHA [facility] Spine cervical w/wo contrast MRI Spine cervical w/wo contrast MRI MRI CERVICAL SPINE WITHOUT AND WITH CONTRAST TECHNIQUE: Multiplanar multisequence imaging of the cervical spine was performed without and with administration of intravenous gadolinium. COMPARISON: 04/07/2006 MRI exam. FINDINGS: Multilevel disc desiccation is seen. Compared to 2006, C3-C6 ACDF changes are present. C2-C3: Mild bilateral facet osteoarthritis and minimal disc bulge. No central canal or foraminal stenosis. C3-C4: Normal alignment compared to 2007. Mild left foraminal stenosis due to facet osteoarthritis is seen. There is no central canal stenosis. C4-C5: No central canal or foraminal stenosis. Normal alignment at this level. Cervical cord myelomalacia is present. C5-C6: Normal alignment at this level. No central canal stenosis. Mild left foraminal stenosis is present. C6-C7: Approximately 3 mm posterior disc osteophyte complex with mild anterior cord margin indentation. There is moderate to severe left foraminal stenosis and mild right foraminal stenosis due to disc osteophyte complexes. C7-T1: Minimal grade 1 anterolisthesis is seen with moderate facet osteoarthritis. Mild right foraminal stenosis. No central canal stenosis. No abnormal enhancement is identified. IMPRESSION: 1. Multilevel disc degenerative disease and spondylosis. C3-C6 ACDF changes as above. 2. C3-C4, C5-C6 mild left foraminal stenosis. C6-C7 moderate to severe left foraminal stenosis. 3. C7-T1 grade 1 anterolisthesis with mild right foraminal stenosis. 04/03/2015 - - Read by: Matt Madsen MD Dictated Date/time: 04/04/15 09:40 Electronically Signed by: Matt Madsen MD 04/04/15 10:36 FINAL REPORT ROSCOE [facility] Vital Signs Vital Sign Value Date Comments Source Weight 126.1 05/23/2018 Simon Hernandez Height 64 05/23/2018 Simon Hernandez Temperature Oral (F) 96.7 F 05/23/2018 Simon Hernandez Heart Rate 76 05/23/2018 Simon Hernandez Diastolic (mm Hg) 70 05/23/2018 Simon Hernandez Systolic (mm Hg) 132 05/23/2018 Simon Hernandez Weight 126.7 01/16/2018 Simon Hernandez Height 63 01/16/2018 Simon Hernandez Temperature Oral (F) 97.6 F 01/16/2018 Simon Hernandez Heart Rate 72 01/16/2018 Simon Hernandez Diastolic (mm Hg) 68 01/16/2018 Simon Hernandez Systolic (mm Hg) 122 01/16/2018 Simon Hernandez Weight 123.9 12/19/2017 Simon Hernandez Height 63 12/19/2017 Simon Hernandez Temperature Oral (F) 99.1 F 12/19/2017 Simon Hernandez Heart Rate 70 12/19/2017 Simon Hernandez Diastolic (mm Hg) 60 12/19/2017 Simon Hernandez Systolic (mm Hg) 112 12/19/2017 Simon Hernandez Weight 127 06/27/2017 Simon Hernandez Height 63 06/27/2017 Simon Hernandez Temperature Oral (F) 99.3 F 06/27/2017 Simon Hernandez Heart Rate 76 06/27/2017 Simon Hernandez Diastolic (mm Hg) 80 06/27/2017 Simon Hernandez Systolic (mm Hg) 122 06/27/2017 Simon Hernandez Weight 127 04/18/2017 Simon Hernandez Height 64 04/18/2017 Simon Hernandez Temperature Oral (F) 97.7 F 04/18/2017 Simon Hernandez Heart Rate 80 04/18/2017 Simon Hernandez Diastolic (mm Hg) 60 04/18/2017 Simon Hernandez Systolic (mm Hg) 112 04/18/2017 Simon Hernandez Encounters Location Location Details Encounter Type Encounter Number Reason For Visit Attending Provider ADM Date DC Date Status Source TO [id number] SPEECH PHONATION DYSPHONIA 784.42, VOICAL CORD DISCORDE DEONDRE SILVESTRE 11/10/2011 Active [facility] TO [id number] SPEECH PHONATION DYSPHONIA 784.42, VOICAL CORD DISCORDE DEONDRE SILVESTRE 12/14/2011 Active [facility] [address] [facility] [place] [facility] [id number] Osmany Gallagher 04/03/2015 04/04/2015 [facility] [place] TO [id number] SPEECH PHONATION DYSPHONIA 784.42, VOICAL CORD DISCORDE DEONDRE Nelsoncel [facility] Procedures Procedure Code Date Perfomer Comments Source
--- OUTSIDE RECORDS SUMMARY | 2018-06-04 10:58 | XMS REPORT ---
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 Active Problem Cervical facet joint syndrome M12.88 Active Problem Chronic pain syndrome G89.4 Active Assessment Cervical facet joint syndrome M12.88 Active Problem Cervical spondylosis M47.812 Active Problem 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 Active Medications Medication Code System Code Instructions Start Date End Date Status Dosage Vitamin D [facility] [address]-71 00780 U Orally Active as directed Celebrex [facility] [address]-03 200 MG Orally Once a day Active 1 capsule Cymbalta [facility] [address]-47 60 MG Orally Once a day Active 1 capsule Acetaminophen-Codeine #3 [facility] [address]-84 300-30 MG Orally every 8 hrs PRN Active 1 tablet as needed Amlodipine Besylate [facility] [address]-59 2.5 MG Orally Once a day Active 1 tablet Pentasa [facility] [address]-45 500 MG Orally Four times a day Active 2 capsules Folic Acid [facility] [address]-16 1 MG Orally Once a day Active 1 tablet Oxybutynin Chloride ER [facility] [address]-10 10 MG Orally Once a day Active 1 tablet Align [facility] 19847-36697 Orally Active as directed Results No Known Results Summary Purpose [employer]ClinicalWorks Submission
--- OUTSIDE RECORDS SUMMARY | 2018-06-04 10:58 | XMS REPORT | CCD ---
Author Author Auto Generated Organization [facility] Address Unknown Phone Unavailable Care Team Providers Care Plastics Fitter Name Role Phone Nuha Louis CP Allergies, Adverse Reactions, Alerts Substance Reaction Status NKDA Active
--- OUTSIDE RECORDS SUMMARY | 2018-06-04 10:58 | XMS REPORT ---
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
--- OUTSIDE RECORDS SUMMARY | 2018-06-04 10:58 | XMS REPORT | CCD ---
Author Author Auto Generated Organization [facility] Address Unknown Phone Unavailable Care Team Providers Care Felt Hooker Name Role Phone Nuha Louis CP Allergies, Adverse Reactions, Alerts Substance Reaction Status NKDA Active
--- OUTSIDE RECORDS SUMMARY | 2018-06-04 10:58 | XMS REPORT ---
Author Author Juanito Tijerina Organization [employer] Address Unknown Phone Unavailable Care Team Providers Care Director Of Residential Services Name Role Phone Juanito Tijerina CP Unavailable [...]
--- OUTSIDE RECORDS SUMMARY | 2018-06-04 10:59 | XMS REPORT ---
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
--- OUTSIDE RECORDS SUMMARY | 2018-06-04 10:59 | XMS REPORT ---
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
--- OUTSIDE RECORDS SUMMARY | 2018-06-04 10:59 | XMS REPORT ---
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 anti-inflammatories (NSAID) Z79.1 Active Problem Enthesopathy of knee M76.9 Active Problem Knee pain, right M25.561 Active Problem Vitamin D deficiency E55.9 Active Problem 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
--- OUTSIDE RECORDS SUMMARY | 2018-06-04 10:59 | XMS REPORT ---
Author Author Ector Gallegos [facility] e[employer] Address Unknown Phone Unavailable Care Team Providers Care Financial Analysis Manager Name Role Phone Ector Gallegos Unavailable Allergies, Adverse Reactions, Alerts Substance Reaction Event Type N.K.D.A. 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 Problem Neck pain M54.2 Active Medications Medication Code System Code Instructions Start Date End Date Status Dosage Vitamin D-3 [facility] 57096896125 1000 UNIT Orally Once a day Active 1 capsule Aspirin [facility] 48471604662 325 MG Orally Once a day Active 1 tablet Lisinopril [facility] 07812868062 2.5 MG Orally HOLD Active 1 tablet Multi-Vitamin ND 86597745581 Orally once a day Active 1 tablet Alendronate Sodium [facility] 11857985935 35 MG Active TAKE 1 TABLET BY MOUTH ONCE A WEEK Nsyzxeowac-YIFS-Ejjnlvut [facility] 91022304230 50-325-40 MG Orally every 4 hrs Active 1 capsule as needed Pravastatin Sodium ND 35708806236 20 MG Orally Once a day Active 1 tablet Cymbalta [facility] 14274609413 60 MG Active TAKE ONE CAPSULE BY MOUTH ONCE A DAY Vitamin B-12 [facility] 33426261120 1000 MCG/15ML Orally Once a day Active 15 ml Pentasa [facility] 30930742202 500 MG Orally Four times a day Active 2 capsules Celebrex [facility] 87099417006 200 MG Active TAKE ONE CAPSULE BY MOUTH EVERY DAY WITH FOOD Famotidine [facility] 85064554729 20 MG Orally twice a day Active 1 tablet at bedtime Vital Signs Date/Time: Jan 16, 2018 BMI 22.44 Index Weight 126.7 lbs Height 63 in Temperature 97.6 F Cardiac Monitoring Heart Rate 72 /min Blood Pressure Diastolic 68 mm Hg Blood Pressure Systolic 122 mm Hg Results No Known Results Summary Purpose eClinicalWorks Submission
--- OUTSIDE RECORDS SUMMARY | 2018-06-04 10:59 | XMS REPORT ---
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
--- OUTSIDE RECORDS SUMMARY | 2018-06-04 10:59 | XMS REPORT ---
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 51278692060 60 MG Orally Once a day June 03, 2017 Active 1 capsule Results No Known Results Summary Purpose eClinicalWorks Submission
--- OUTSIDE RECORDS SUMMARY | 2018-06-04 10:59 | XMS REPORT ---
Author Author Ector Gallegos [facility] eClinicalWorks Address Unknown Phone Unavailable Care Team Providers Care Wall Insulation Sprayer Name Role Phone Ector Gallegos Unavailable Allergies, Adverse Reactions, Alerts Substance Reaction Event Type N.K.D.A. 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 of non-steroidal anti-inflammatories (NSAID) Z79.1 Active Problem Neck pain M54.2 Active Problem Osteoarthritis of right knee M17.9 Active Medications Medication Code System Code Instructions Start Date End Date Status Dosage Celebrex [facility] 22494105423 200 MG Active TAKE ONE CAPSULE BY MOUTH EVERY DAY WITH FOOD Glucosamine Chond Complex/MSM [facility] 09838118730 Orally once a day Active 2 tablets Oxybutynin Chloride ER [facility] 04720679755 10 MG Orally at bedtime Active as directed Calcium 1200 [facility] 97627241682 9271-9018 MG-UNIT Orally Once a day Active 1 tablet with a meal Cymbalta [facility] 08591216611 60 MG Active TAKE ONE CAPSULE BY MOUTH EVERY DAY Lisinopril [facility] 57285904097 2.5 MG Orally Once a day Active 1 tablet Multi-Vitamin ND 80612866704 Orally once a day Active 1 tablet Align [facility] 69216256705 4 MG Orally once a day Active 1 capsule Pentasa [facility] 05383100788 500 MG Orally Four times a day Active 2 capsules Vitamin B-12 [facility] 91938923275 1000 MCG/15ML Orally Once a day Active 15 ml Folic Acid [facility] 84659771442 1 MG Orally Once a day Active 1 tablet Vital Signs Date/Time: Apr 18, 2017 BMI 21.80 Index Weight 127 lbs Height 64 in Temperature 97.7 F Cardiac Monitoring Heart Rate 80 /min Blood Pressure Diastolic 60 mm Hg Blood Pressure Systolic 112 mm Hg Results No Known Results Summary Purpose eClinicalWorks Submission
--- OUTSIDE RECORDS SUMMARY | 2018-06-04 10:59 | XMS REPORT ---
Author Author Ector Gallegos [facility] eClinicalWorks Address Unknown Phone Unavailable Care Team Providers Care Binding Dyer Name Role Phone Ector Gallegos Unavailable Allergies, Adverse Reactions, Alerts Substance Reaction Event Type N.K.D.A. 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 non-steroidal anti-inflammatories (NSAID) Z79.1 Active Problem Neck pain M54.2 Active Problem Osteoarthritis of right knee M17.9 Active Medications Medication Code System Code Instructions Start Date End Date Status Dosage Align [facility] 32399159644 4 MG Orally once a day Active 1 capsule Multi-Vitamin [facility] 84812978112 Orally once a day Active 1 tablet Lisinopril [facility] 40500007831 2.5 MG Orally Once a day Active 1 tablet Celebrex [facility] 21540445453 200 MG Active TAKE ONE CAPSULE BY MOUTH EVERY DAY WITH FOOD Oxybutynin Chloride ER ND 18046184547 10 MG Orally at bedtime Active as directed Calcium 1200 [facility] 72188118472 0338-4904 MG-UNIT Orally Once a day Active 1 tablet with a meal Glucosamine Chond Complex/MSM ND 31902934755 Orally once a day Active 2 tablets Folic Acid [facility] 72755244088 1 MG Orally Once a day Active 1 tablet Cymbalta [facility] 22417044500 60 MG Orally Once a day June 03, 2017 Active 1 capsule Vitamin B-12 [facility] 22462642145 1000 MCG/15ML Orally Once a day Active 15 ml Pentasa [facility] 81114782967 500 MG Orally Four times a day Active 2 capsules Vital Signs Date/Time: June 27, 2017 BMI 22.49 Index Weight 127 lbs Height 63 in Temperature 99.3 F Cardiac Monitoring Heart Rate 76 /min Blood Pressure Diastolic 80 mm Hg Blood Pressure Systolic 122 mm Hg Results No Known Results Summary Purpose eClinicalWorks Submission
--- OUTSIDE RECORDS SUMMARY | 2018-06-04 10:59 | XMS REPORT ---
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
--- OUTSIDE RECORDS SUMMARY | 2018-06-04 10:59 | XMS REPORT ---
Author Author Ector Gallegos [facility] [employer]ClinicalWorks Address Unknown Phone Unavailable Care Team Providers Care Radiator Mechanic Name Role Phone Ector Gallegos Unavailable Allergies, Adverse Reactions, Alerts Substance Reaction Event Type N.K.D.A. 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 Problem Neck pain M54.2 Active Assessment Knee pain, right M25.561 Active Assessment Vitamin D deficiency E55.9 Active Assessment shelter (current) use of non-steroidal anti-inflammatories (NSAID) Z79.1 Active Medications Medication Code System Code Instructions Start Date End Date Status Dosage Famotidine [facility] 80195992096 20 MG Orally twice a day Active 1 tablet at bedtime Vitamin B-12 [facility] 92317056264 1000 MCG/15ML Orally Once a day Active 15 ml Alendronate-35 mg weekly ND 0 35 mg orally once a week July 01, 2017 Active one tablet Vitamin D-3 [facility] 32251019373 1000 UNIT Orally Once a day Active 1 capsule Lisinopril ND 03387818486 2.5 MG Orally HOLD Active 1 tablet Aspirin ND 37840959836 325 MG Orally Once a day Active 1 tablet Cymbalta [facility] 46729726060 60 MG Active TAKE ONE CAPSULE BY MOUTH ONCE A DAY Pravastatin Sodium ND 61099251071 20 MG Orally Once a day Active 1 tablet Orbtxgwmhp-RRGJ-Dxzktqcq [facility] 58782228435 50-325-40 MG Orally every 4 hrs Active 1 capsule as needed Celebrex [facility] 43689367990 200 MG Active TAKE ONE CAPSULE BY MOUTH EVERY DAY WITH FOOD Pentasa [facility] 48568851813 500 MG Orally Four times a day Active 2 capsules Multi-Vitamin [facility] 07115168024 Orally once a day Active 1 tablet Vital Signs Date/Time: Dec 19, 2017 BMI 21.95 Index Weight 123.9 lbs Height 63 in Temperature 99.1 F Cardiac Monitoring Heart Rate 70 /min Blood Pressure Diastolic 60 mm Hg Blood Pressure Systolic 112 mm Hg Results No Known Results Summary Purpose eClinicalWorks Submission
--- OUTSIDE RECORDS SUMMARY | 2018-06-04 10:59 | XMS REPORT ---
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
--- OUTSIDE RECORDS SUMMARY | 2018-06-04 10:59 | XMS REPORT ---
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
--- OUTSIDE RECORDS SUMMARY | 2018-06-04 10:59 | XMS REPORT ---
Author Author Ector Gallegos [facility] eClinicalWorks Address Unknown Phone Unavailable Care Team Providers Care Kitchen Hand Name Role Phone Ector Gallegos Unavailable Allergies, Adverse Reactions, Alerts Substance Reaction Event Type N.K.D.A. 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 Problem Neck pain M54.2 Active Problem Osteoarthritis of right knee M17.9 Active Problem Osteopenia M85.80 Active Problem 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 Assessment 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 Assessment 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 Assessment Osteopenia M85.80 Active Problem Enthesopathy of knee M76.9 Active Medications Medication Code System Code Instructions Start Date End Date Status Dosage Vitamin B-12 [facility] 00675987992 1000 MCG/15ML Orally Once a day Active 15 ml Famotidine [facility] 61869099715 20 MG Orally twice a day Active 1 tablet at bedtime Clonidine HCl [facility] 91958735400 0.2 MG Orally Once a day Active 1 tablet Simvastatin [facility] 33955181468 10 MG Orally Once a day Active 1 tablet in the evening Hydroxychloroquine Sulfate [facility] 90164019965 200 MG Orally Once a day May 23, 2018 September 20, 2018 Active 1 tablet with food or milk Vitamin D-3 [facility] 91512343789 1000 UNIT Orally Once a day Active 1 capsule Lisinopril [facility] 07334196647 2.5 MG Orally HOLD Active 1 tablet Pentasa [facility] 17882090481 500 MG Orally Four times a day Active 2 capsules Cymbalta [facility] 03247736214 60 MG Active TAKE ONE CAPSULE BY MOUTH EVERY DAY Alendronate Sodium [facility] 02257576371 35 MG Active TAKE 1 TABLET BY MOUTH ONCE A WEEK Kthtbxveaz-ZYQV-Nbydjeqv [facility] 81096237192 50-325-40 MG Orally every 4 hrs Active 1 capsule as needed Aspirin [facility] 09105475704 325 MG Orally Once a day Active 1 tablet Celebrex [facility] 98797286605 200 MG Active TAKE ONE CAPSULE BY MOUTH EVERY DAY WITH FOOD Pravastatin Sodium [facility] 34824286630 20 MG Orally Once a day Active 1 tablet Multi-Vitamin [facility] 27625777822 Orally once a day Active 1 tablet Vital Signs Date/Time: May 23, 2018 BMI 21.64 Index Weight 126.1 lbs Height 64 in Temperature 96.7 F Cardiac Monitoring Heart Rate 76 /min Blood Pressure Diastolic 70 mm Hg Blood Pressure Systolic 132 mm Hg Results No Known Results Summary Purpose eClinicalWorks Submission
[2018-06-04] MEDS ORDERED: MULTI-VITAMIN1 EACH PO (11:23)
[2018-06-04] MEDS ORDERED: CELEBREX100 MG PO (11:23)
[2018-06-04] MEDS ORDERED: ALENDRONATE SOD35 MG PO (11:23)
[2018-06-04] MEDS ORDERED: FAMOTIDINE20 MG PO (11:23)
[2018-06-04] MEDS ORDERED: CYMBALTA30 MG PO (11:23)
[2018-06-04] MEDS ORDERED: HYDROXYCHLOROQ200 MG PO (11:23)
[2018-06-04] MEDS ORDERED: PENTASA500 MG PO (11:23)
[2018-06-04] MEDS ORDERED: BUTALB-ACETAMI1 EACH PO (11:23)
[2018-06-04] MEDS ORDERED: LISINOPRIL2.5 MG PO (11:23)
--- NOTE | 2018-06-04 11:25 | NUR ---
DR. BRISCOE AT BEDSIDE FOR PATIENT EVAL.
[2018-06-04] MEDS ORDERED: SODIUM CHLORIDE 0.9% 500ML 500 ML IV ONE (11:45)
[2018-06-04 11:59] LABS: BASOPHILS % 0.7 % (0.0-1.0); EOSINOPHILS # (AUTO) 0.1 (0.0-0.4); EOSINOPHILS % 1.3 % (0.0-6.0); HEMATOCRIT 41.3 % (34.2-44.1); HEMOGLOBIN 13.8 g/dL (12.0-16.0); LYMPHOCYTES # (AUTO) 1.6 (1.0-3.2); LYMPHOCYTES % 25.7 % (18.0-39.1); MEAN CORPUSCULAR HEMOGLOBIN 33.3 pg (28-32); MEAN CORPUSCULAR HGB CONC 33.4 g/dL (31-35); MEAN CORPUSCULAR VOLUME 99.8 fL (81-99); MONOCYTES # (AUTO) 0.4 (0.2-0.8); MONOCYTES % 7.1 % (4.4-11.3); NEUTROPHILS # (AUTO) 3.9 (2.1-6.9); PLATELET COUNT 154 x10e3/uL (140-360); RED BLOOD COUNT 4.14 x10e6/uL (3.6-5.1)
[2018-06-04 12:08] LABS: INR 0.94; PROTHROMBIN TIME 13.1 seconds (11.9-14.5)
[2018-06-04 12:09] LABS: PARTIAL THROMBOPLASTIN TIME 27.9 seconds (23.8-35.5)
--- NOTE | 2018-06-04 12:37 | Diagnostic Imaging Report ---
EXAMINATION: CHEST SINGLE (PORTABLE) COMPARISON: None INDICATION: Weakness, ^OFF-BALANCE ^[id number] ^1212 DISCUSSION: Frontal view of the chest obtained at 1218 hours. HEART AND MEDIASTINUM: Stable cardiomegaly and aortic ectasia. LINES: None. LUNGS: Diffuse stable hyperinflation. Increased markings in the lung bases suggestive of atelectasis. Diffuse bronchial wall thickening is stable PLEURA: No pleural effusion or pneumothorax. BONES AND SOFT TISSUES: No focal osseous lesion. Stable degenerative changes of the shoulders. There are bilateral costochondral calcifications. The soft tissues are normal. IMPRESSION: Stable pulmonary hyperinflation and bronchial wall thickening suggestive of reactive airways disease or viral upper respiratory infection. Cardiomegaly without vascular congestion. Signed by: Dr. Rosa Drake MD on 06/04/2018 12:33 PM
--- NOTE | 2018-06-04 13:03 | Diagnostic Imaging Report ---
CT BRAIN WO HISTORY: Loss of balance COMPARISON: MRI of the brain 12/20/2017 Technique: Noncontrast axial scans were obtained from skull base to the vertex. Coronal and sagittal reconstructions obtained from the axial data. One or more of the following dose reduction techniques were used: Automated exposure control, adjustment of the mA and/or kV according to patient size, and/or utilization of iterative reconstruction technique. DISCUSSION: Scalp/Skull: Unremarkable. Brain sulci: Mildly prominent. Ventricles: Compensatory dilatation. Extra-axial spaces: No masses or fluid collections. Carotid siphon calcifications are present. Parenchyma: Mild bilateral deep white matter hypodensity is likely chronic microvascular ischemic change. Otherwise, no masses, hemorrhage, or large vascular territory acute infarct. Dural sinuses: No abnormal densities. Sellar/Suprasellar region: Intact. Skull base: Intact. Incidental findings: None. IMPRESSION: 1. No acute intracranial abnormalities. 2. Mild supratentorial chronic microvascular ischemic change. Mild generalized cerebral volume loss. Signed by: Dr. Alexandro Avendano M.D. on 06/04/2018 1:00 PM
[2018-06-04 13:21] LABS: BILIRUBIN,URINE NEGATIVE (NEGATIVE); CLARITY,URINE HAZY (CLEAR); COLOR,URINE YELLOW (YELLOW); KETONES,URINE NEGATIVE (NEGATIVE); LEUKOCYTE ESTERASE ,URINE 1+ (NEGATIVE); NITRITE,URINE NEGATIVE (NEGATIVE); PROTEIN,URINE DIPSTICK NEGATIVE (NEGATIVE); URINE UROBILINOGEN 0.2 mg/dL (0.2 - 1)
[2018-06-04 13:23] LABS: BACTERIA,URINE FEW /HPF; EPITHELIAL CELLS,URINE FEW /LPF; RBC,URINE 0-5 /HPF (0-5); WBC,URINE (MAN) 0-5 /HPF (0-5)
[2018-06-04 13:40] LABS: ALANINE AMINOTRANSFERASE 16 IU/L (0-55); ALBUMIN 3.5 g/dL (3.5-5.0); ALBUMIN/GLOBULIN RATIO 1.4 (0.8-2.0); ALKALINE PHOSPHATASE 48 IU/L (40-150); ANION GAP 10.4 mmol/L (8-16); BLOOD UREA NITROGEN 15 mg/dL (7-26); BUN/CREATININE RATIO 19 (6-25); CALCIUM 8.3 mg/dL (8.4-10.2); CARBON DIOXIDE 26 mmol/L (22-29); CHLORIDE 110 mmol/L (98-107); CREATINE KINASE 87 IU/L (29-168); EST GLOMERULAR FILTRATION RATE > 60 ML/MIN (60-); GLUCOSE 88 mg/dL (74-118); MAGNESIUM 1.8 MG/DL (1.3-2.1); POTASSIUM 4.4 mmol/L (3.5-5.1); SODIUM 142 mmol/L (136-145)
[2018-06-04] MEDS ORDERED: ONDANSETRON HCL INJ 2MG/ML 2ML 2 MG/ML VIAL IV PRN (13:45)
[2018-06-04 13:59] LABS: THYROID STIMULATING HORMONE 1.478 uIU/mL (0.350-4.940)
[2018-06-04] MEDS ORDERED: ASPIRIN 325 MG TAB EC PO ONE (14:00)
--- NOTE | 2018-06-04 15:21 | NUR ---
Recvd patient from ER, AAOX3, assisted her to bed, unsteady when she walks, not in any distress , denies any pain or SOB, Micheal light in reach, daughter at bed side
[2018-06-04 15:40] VITALS: BP 138/65
[2018-06-04 15:57] VITALS: BP 138/65
[2018-06-04] MEDS ORDERED: ACETAMINOPHEN 325 MG TAB PO PRN (16:15)
[2018-06-04] MEDS ORDERED: HYDRALAZINE HCL 20 MG/ML VIAL IV PRN (16:15)
[2018-06-04] MEDS ORDERED: ACETAMINOPHEN/CODEINE 300MG - 30MG TAB PO PRN (16:15)
[2018-06-04] MEDS ORDERED: LISINOPRIL 2.5 MG TAB PO PRN (16:15)
[2018-06-04] MEDS ORDERED: CELECOXIB 100 MG CAP PO SCH (17:00)
[2018-06-04] MEDS: CLONIDINE HCL 0.2 MG TAB PO SCH (17:00)
--- NOTE | 2018-06-04 19:00 | NUR ---
received report from day nurse. patient is resting comfortably in bed. bed is in lowest position and call lieberman is within reach. will continue to monitor patient.
[2018-06-04 20:00] VITALS: BP 160/73
[2018-06-04] MEDS: MESALAMINE 500 MG CAPCR PO SCH ×2 (21:00→21:03)
[2018-06-04] MEDS ORDERED: SIMVASTATIN 20 MG TAB PO SCH (21:00)
[2018-06-04] MEDS: FAMOTIDINE 20 MG TAB PO SCH (21:03)
--- NOTE | 2018-06-04 21:09 | NUR ---
patients blood pressure has been reassessed and found to be 138/77 heart rate 80. will continue to monitor patients blood pressure.
[2018-06-05] VITALS: BP 137/63
[2018-06-05 03:16] LABS: BASOPHILS % 0.4 % (0.0-1.0); EOSINOPHILS # (AUTO) 0.1 (0.0-0.4); HEMATOCRIT 39.3 % (34.2-44.1); HEMOGLOBIN 13.2 g/dL (12.0-16.0); LYMPHOCYTES # (AUTO) 1.7 (1.0-3.2); MEAN CORPUSCULAR HEMOGLOBIN 33.3 pg (28-32); MEAN CORPUSCULAR HGB CONC 33.6 g/dL (31-35); MEAN CORPUSCULAR VOLUME 99.2 fL (81-99); MONOCYTES # (AUTO) 0.4 (0.2-0.8); NEUTROPHILS # (AUTO) 2.8 (2.1-6.9); NEUTROPHILS % 56.4 % (38.7-80.0); PLATELET COUNT 152 x10e3/uL (140-360); RED BLOOD COUNT 3.96 x10e6/uL (3.6-5.1); RED CELL DISTRIBUTION WIDTH 11.8 % (11.7-14.4)
[2018-06-05 03:26] LABS: MAGNESIUM 1.7 MG/DL (1.3-2.1)
[2018-06-05 03:32] LABS: ALANINE AMINOTRANSFERASE 13 IU/L (0-55); ALBUMIN 3.3 g/dL (3.5-5.0); ALBUMIN/GLOBULIN RATIO 1.3 (0.8-2.0); ALKALINE PHOSPHATASE 44 IU/L (40-150); ANION GAP 9.6 mmol/L (8-16); BLOOD UREA NITROGEN 13 mg/dL (7-26); BUN/CREATININE RATIO 16 (6-25); CALCIUM 8.4 mg/dL (8.4-10.2); CARBON DIOXIDE 27 mmol/L (22-29); CHLORIDE 109 mmol/L (98-107); CHOL/HDL RATIO 2.8 (3.0-3.6); CHOLESTEROL 124 MD/DL (0-199); EST GLOMERULAR FILTRATION RATE > 60 ML/MIN (60-); GLUCOSE 90 mg/dL (74-118); HDL CHOLESTEROL 44 MG/DL (40-60); LDL CHOLESTEROL 45 MG/DL (60-130); POTASSIUM 3.6 mmol/L (3.5-5.1); SODIUM 142 mmol/L (136-145); TRIGLYCERIDES 176 MG/DL (0-149)
[2018-06-05 03:40] LABS: B-TYPE NATRIURETIC PEPTIDE2 130.2 pg/mL (0-100)
[2018-06-05 03:52] LABS: CREATINE KINASE MB 1.3 ng/mL (0-5.0)
[2018-06-05 03:55] LABS: FREE T4 (FREE THYROXINE) 0.83 ng/dL (0.9-1.8); THYROID STIMULATING HORMONE 2.243 uIU/mL (0.350-4.940)
[2018-06-05 04:00] VITALS: BP 134/61
--- NOTE | 2018-06-05 06:58 | NUR ---
report given to day nurse. patient is resting comfortably in bed. bed is in lowest position and call lieberman is within reach.
[2018-06-05 08:16] VITALS: BP 132/68
[2018-06-05 08:20] VITALS: BP 132/68
[2018-06-05] MEDS: MESALAMINE 500 MG CAPCR PO SCH ×3 (08:20→17:20)
[2018-06-05] MEDS: FAMOTIDINE 20 MG TAB PO SCH ×2 (08:20→17:20)
[2018-06-05] MEDS ORDERED: MULTIVITAMINS/MINERALS TAB PO SCH (09:00)
[2018-06-05] MEDS ORDERED: HYDROXYCHLOROQUINE SULFATE 200 MG TAB PO SCH (09:00)
[2018-06-05] MEDS: CLONIDINE HCL 0.2 MG TAB PO SCH ×2 (09:00→17:00)
[2018-06-05] MEDS ORDERED: DULOXETINE HCL 30 MG DELAYED RELEASE PO SCH (09:00)
[2018-06-05] MEDS ORDERED: ASPIRIN 325 MG TAB EC PO SCH (09:00)
--- NOTE | 2018-06-05 10:14 | NUR ---
received verbal order that patient may come off telemetry for MRI and will be placed back on telemetry when she returns to the floor. Patient running sinus rhythm at this time.
--- NOTE | 2018-06-05 11:39 | NUR ---
patient leaving floor via wheelchair, alert and oriented and in stable condition. Removed telemetry and will replace upon arrival back to unit
[2018-06-05 11:59] LABS: CREATINE KINASE MB 1.2 ng/mL (0-5.0)
--- NOTE | 2018-06-05 12:13 | NUR ---
patient arrived back on unit via wheelchair, alert and oriented. Call lieberman within reach, bed in lowest position and family member at bedside.
--- NOTE | 2018-06-05 14:04 | NUR ---
SOCIAL WORK INITIAL ASSESSMENT Fingerprint Expert to bedside to discuss plan of care with patient/family. CM/SW role and care transitions discussed. Anticipated discharge plan discussed along with duration of care. CM/SW discussed patients right to make decisions in care. CM/SW work hours given. Patient lives: [facility] Admit/Transfer: ADMIT OBS POA/Emergency contact: JAROD CARLOS [phone] Current/Previous Home Health: NONE PCP/Follow-up Care: DAIJA Current/Previous DME: HAVE A WALKER AND A CANE FROM [place] LAST MAY BUT DO NOT CURRENTLY USE Other Services: NONE Employment Status: RETIRED Areas of Concerns: NONE Referral Needs: NONE Education Needs: NONE IMM/FRANCO given and signed (if applicable): UPON ADMISSION Goal for discharge: RETURN HOME CM/SW left business card at the bedside with contact information. Name and number was also written on the patients whiteboard. Patient verbalized understanding of discussion. CM will follow-up with ongoing discharge and transition of care needs.
--- NOTE | 2018-06-05 15:27 | Diagnostic Imaging Report ---
History: Dizziness, unbalanced Comparison studies: CT head 06/04/2018 Technique: Sagittal T2; axial DWI, FLAIR, MPGR, T1, Coronal FLAIR. Intravenous contrast: None Findings: Scalp: Normal in signal . No masses . Bone marrow: Normal in signal intensity. Extra-axial: No masses, no fluid collections. Brain sulci: Mildly prominent. Ventricles: Normal in size . No hydrocephalus . Parenchyma: Scattered T2/flair hyperintensities of the periventricular and deep white matter. Similar changes at the central kurt. No masses, hemorrhage, acute or chronic vascular insults. Suprasellar region: No abnormalities. Craniocervical junction: No abnormalities. Patent foramen magnum. No Chiari one malformation. Vessels: Normal flow-voids in the arteries and sinuses. Thin eye lenses, related to previous intervention IMPRESSION: 1. No acute abnormalities. 2. Mild chronic microvascular ischemic changes of the white matter and mild volume loss Signed by: DR Feliberto Smith M.D. on 06/05/2018 3:24 PM
[2018-06-05 16:20] VITALS: BP 149/67
--- NOTE | 2018-06-05 18:06 | NUR ---
report given to Yumiko for patient transfer. Patient aware of change, alert and oriented. Will move patient via wheelchair to new room
--- NOTE | 2018-06-05 18:15 | NUR ---
Received patient from the observation unit she is alert and oriented x3, daughter bedside no s/s of distress. wating for Dr. Plummer to round.
--- NOTE | 2018-06-05 19:10 | NUR ---
REPORT TAKEN FROM AM RN.WALKING ROUNDS DONE.STABLE CONDITION.WAITING FOR ROUNDS.
[2018-06-05 20:24] VITALS: BP 143/73
--- NOTE | 2018-06-05 20:51 | NUR ---
IS IN THE UNIT.OK TO DISCHARGE THE PT.
--- NOTE | 2018-06-05 21:35 | NUR ---
DISCHARGE ASSESSMENT DONE.STABLE CONDIITON.D/C TELE MONITOR AND RETURNED TO RESPECTIVE DEPT.IV CANNULA REMOVED AND APPLIED PRESSURE DRESSING.INSTRUCTED THE PT TO GO TO NEAREST ER OR CONTACT PHYSICIAN INCASE CHEST PAIN ,SHORTNESS OF BREATH OR ANY OTHER EMERGENCY SITUATION OCCUR.INSTRUCTION GIVEN ABOUT FOLLOW UP ALSO.PT VERBALIZED UNDERSTANDING.ALL THE BELONGINGS WITH PT.TRANSFERRED TO PARKING LOT IN A WHEEL CHAIR IN STABLE CONDITION.
[2018-06-06] MEDS ORDERED: ASPIRIN 325 MG TAB EC PO SCH (09:00)
--- NOTE | 2018-06-06 18:23 | Discharge Summary ---
ADMISSION DIAGNOSES: Dizziness, hypertension, history of cerebrovascular accident, Crohn disease, chronic diastolic congestive heart failure, gastroesophageal reflux disease, headache. DISCHARGE DIAGNOSES: Dizziness, hypertension, history of cerebrovascular accident, Crohn disease, chronic diastolic congestive heart failure, gastroesophageal reflux disease, headache, rule out cerebrovascular accident. HISTORY: Crohn disease, hypertension, CVA, headaches, GERD, neuropathy, chronic diastolic CHF. SURGICAL HISTORY: Bowel surgery, hysterectomy, right shoulder surgery, appendectomy, and C-spine fusion. FAMILY HISTORY: Noncontributory. SOCIAL HISTORY: Noncontributory. HOSPITAL COURSE: An 87-year-old female complains of ataxia and dizziness and got worried when she noticed weakness on the day before admission. Symptoms generally occur when sitting up from a lying position. Nothing improves or worsens the symptoms. They resolve spontaneously after sitting still for a little while. On admission, the patient had a chest x-ray that shows stable pulmonary hyperinflation, cardiomegaly without vascular congestion. CT of the brain was negative. Urine culture negative. MRI negative. Carotid Doppler negative. The patient's symptoms have resolved. She does not require physical therapy at home per PT assessment. The patient is feeling better and ready to discharge. She will follow up with primary care in 1-2 weeks. Vital signs stable. The patient is afebrile. The patient understands discharge instructions and agrees to plan. Dictated by Rochelle Mendez NP MD CLAIRE Ramos/SAUNDRA /[id number]
== END 2018-06-05 21:51 | disposition home or self-care (01) ==
LOC: ER 10:55 → ERHOLD 13:39 → IMCU 15:30 → MED/SURG 06-05 18:25
PROVIDERS: ADMIT Internal Medicine; ATTEND Internal Medicine
DX: R42 Dizziness and giddiness (principal); I10 Essential (primary) hypertension; Z86.73 Personal history of transient ischemic attack (TIA), and cerebral infarction without residual deficits; K50.90 Crohn's disease, unspecified, without complications; I11.0 Hypertensive heart disease with heart failure; I50.32 Chronic diastolic (congestive) heart failure; K21.9 Gastro-esophageal reflux disease without esophagitis; R26.81 Unsteadiness on feet
CPT/HCPCS: 36415 ×2; 70450; 70551; 71045; 80053 ×2; 80061; 81001; 82550 ×2; 82553 ×2; 82948; 83036; 83735 ×2; 83880; 84439; 84443 ×2; 84484 ×2; 85025 ×2; 85610; 85730; 87086; 93005; 93880; 97161; 99285; G0378 ×2; J7040

== ENCOUNTER → 2019-02-26 | Outpatient (CLI) | payer MEDICARE ==
[~2019-02-26] MED LIST changes: +ALENDRONATE SOD35 MG PO; +BUTALB-ACETAMI1 EACH PO; +CELEBREX100 MG PO; +CYMBALTA30 MG PO; +FAMOTIDINE20 MG PO; +HYDROXYCHLOROQ200 MG PO; +LISINOPRIL2.5 MG PO; +MULTI-VITAMIN1 EACH PO; +PENTASA500 MG PO
--- NOTE | 2019-02-26 17:24 | Diagnostic Imaging Report ---
Right knee, 3 views Clinical indication: Right Comparison: None Findings: 3 views of the right knee were obtained. There is no radiographic evidence of acute fracture or dislocation. There is no radiographic evidence of acute fracture or dislocation. Moderate lateral compartment joint space narrowing is present. There is no sizable knee effusion. Impression: Moderate lateral compartment osteoarthrosis without radiographic evidence of acute fracture or dislocation. Signed by: Surjit Yo MD on 02/26/2019 5:20 PM
== END ==
LOC: RAD 16:29
PROVIDERS: ATTEND Internal Medicine Rheumatology
DX: M25.561 Pain in right knee (principal); M17.11 Unilateral primary osteoarthritis, right knee

== ENCOUNTER 2019-06-14 14:23 | Inpatient (IN) | payer MEDICARE ==
[~2019-06-14] VITALS: Ht 162.6 cm; Wt 55.4 kg
[2019-06-14] MEDS ORDERED: ONDANSETRON HCL 4 MG ORAL DISINTEGRATING TAB PO ONE (14:30)
[2019-06-14] MEDS ORDERED: HYDROCODONE/APAP 5MG-325MG TAB PO ONE (14:30)
--- NOTE | 2019-06-14 15:37 | Diagnostic Imaging Report ---
Left hip and pelvis, 2 views. History: Fall, left hip pain. Findings: The soft tissues are normal. Bone mineralization is normal. A transverse fracture of the left femoral subcapital neck is present with slight lateral angulation. There is no evidence dislocation. Remaining bones are intact. There are no lytic or sclerotic lesions. The joint spaces are within normal limits. IMPRESSION: Nondisplaced left femoral neck fracture. Signed by: Luis Antonio Maldonado on 06/14/2019 3:33 PM
[2019-06-14] MEDS ORDERED: SODIUM CHLORIDE FLUSH 10 ML SYR IV PRN (15:45)
[2019-06-14 16:10] LABS: BASOPHILS % 0.3 % (0.0-1.0); EOSINOPHILS # (AUTO) 0.1 (0.0-0.4); EOSINOPHILS % 0.8 % (0.0-6.0); HEMOGLOBIN 13.6 g/dL (12.0-16.0); LYMPHOCYTES # (AUTO) 1.2 (1.0-3.2); LYMPHOCYTES % 12.2 % (18.0-39.1); MEAN CORPUSCULAR HGB CONC 33.2 g/dL (31-35); MEAN CORPUSCULAR VOLUME 99.5 fL (81-99); MONOCYTES # (AUTO) 0.5 (0.2-0.8); MONOCYTES % 5.2 % (4.4-11.3); NEUTROPHILS # (AUTO) 7.9 (2.1-6.9); PLATELET COUNT 137 x10e3/uL (140-360); RED BLOOD COUNT 4.12 x10e6/uL (3.6-5.1); RED CELL DISTRIBUTION WIDTH 11.5 % (11.7-14.4)
[2019-06-14 16:15] VITALS: BP 153/66
--- NOTE | 2019-06-14 16:21 | Diagnostic Imaging Report ---
Chest, 1 view, 06/14/2019. History: Fall, hip fracture. Comparison: 06/04/2018. Findings: The cardiac silhouette is mildly enlarged but the pulmonary vasculature is within normal limits for a portable exam. There is no focal consolidation or pleural effusion. Old left rib fractures are noted. There are no acute osseous or soft tissue abnormalities. Impression: Mild cardiomegaly without acute pulmonary abnormality. Signed by: Luis Antonio Maldonado on 06/14/2019 4:17 PM
[2019-06-14 16:30] LABS: ALANINE AMINOTRANSFERASE 21 IU/L (0-55); ALBUMIN 3.7 g/dL (3.5-5.0); ALBUMIN/GLOBULIN RATIO 1.6 (0.8-2.0); ALKALINE PHOSPHATASE 51 IU/L (40-150); ANION GAP 8.9 mmol/L (8-16); BLOOD UREA NITROGEN 16 mg/dL (7-26); BUN/CREATININE RATIO 19 (6-25); CALCIUM 8.8 mg/dL (8.4-10.2); CARBON DIOXIDE 28 mmol/L (22-29); CHLORIDE 107 mmol/L (98-107); CREATINE KINASE 72 IU/L (29-168); CREATININE, SERUM 0.83 mg/dL (0.57-1.11); EST GLOMERULAR FILTRATION RATE > 60 ML/MIN (60-); GLUCOSE 116 mg/dL (74-118); POTASSIUM 3.9 mmol/L (3.5-5.1); SODIUM 140 mmol/L (136-145)
[2019-06-14] MEDS: SODIUM CHLORIDE 0.9% 1000ML 1,000 ML IV SCH (16:33)
[2019-06-14] MEDS: ENOXAPARIN 30 MG/0.3 ML SYR SC SCH (16:33)
[2019-06-14 16:53] LABS: INR 0.96; PROTHROMBIN TIME 13.4 seconds (11.9-14.5)
[2019-06-14 16:54] LABS: PARTIAL THROMBOPLASTIN TIME 26.8 seconds (23.8-35.5)
--- NOTE | 2019-06-14 18:07 | Diagnostic Imaging Report ---
TECHNIQUE: Computed tomography imaging of the LEFT HIP was performed WITHOUT injected contrast. Dose modulation, iterative reconstruction, and/or weight based adjustment of the mA/kV was utilized to reduce the radiation dose to as low as reasonably achievable. HISTORY: Fracture evaluation COMPARISON: None available. FINDINGS: Transverse fracture of the left femoral neck with mild impaction and valgus angulation. Minimal degenerative change of the left hip joint with mild chondrocalcinosis. Additional degenerative arthrosis of the sacroiliac joints and pubic symphysis with chondrocalcinosis. Pelvic pessary, otherwise unremarkable intrapelvic contents. IMPRESSION: Transverse fracture of the left femoral neck with mild impaction and valgus angulation Signed by: Dr. Montana Leach M.D. on 06/14/2019 6:03 PM
--- NOTE | 2019-06-14 18:28 | NUR ---
Patient arrived to the unit @ 1803 . Patient arrived via stretcher. Patient in stable condition no sign or symptoms of distress. No complaints of pain. Telemetry in place and working SR @ 92. Bed low and locked. Call light within reach.
--- NOTE | 2019-06-14 18:37 | NUR ---
ORTHOPEDIC CONSULTATION 88 year old community ambulating female without assistive device presents to the ED after a mechanical fall in bed with complaints of left hip pain. She denies headstrike, loss of conciousness, numbness, paresthesias or loss of distal motor function. Denies pain in any other extremity. PMdHx: TIA, Ataxia, Kidney Stones Allergies: NKDA SurgHx: Appendectomy, Hysterectomy, Shoulde Sx, Vertebral Fusion, Kidney Stones FamHx: Non-contributory SocHx: No present EtOh, Drugs or Tob use VS: T 98.3 HR 75 RR 16 BP 156/83 O2 98% AOx3, NAD Left leg - no open lesions or sores, no gross deformity Unable to straight leg raise Motor: +EHL, FHL, TA, G/S Sensation grossly intact Pulses + DP, Post tib Compartments soft Negative calf tenderness XR and CT demonstrate left valgus impacted femoral neck fracture 88 year old female with left valgus impacted femoral neck fracture Plan for left hip closed reduction, percutaneous pinning Analgesics DVT Prophylaxis NPO except meds after midnight IVF while NPO Thank you for the consultation DO [facility]UD[facility]
--- NOTE | 2019-06-14 19:36 | NUR ---
Date of Service 06/14/19 Please see written H&P
[2019-06-14] MEDS: ONDANSETRON HCL INJ 2MG/ML 2ML 2 MG/ML VIAL IV PRN (19:45)
[2019-06-14] MEDS: MORPHINE SULFATE INJ 4 MG/ML INJ 1ML IV PRN (19:45)
[2019-06-14] MEDS ORDERED: LISINOPRIL 2.5 MG TAB PO PRN (20:15)
[2019-06-14 20:30] VITALS: BP 153/66
--- NOTE | 2019-06-14 20:30 | NUR ---
PATIENT IS RESTING IN BED IN STABLE CONDITION, NO SIGNS OF DISTRESS NOTED. NASAL CANNULA IS PATENT AND FLOWING AND RUNNING AT 2 LITERS, AND PATIENT VOICED PAIN AT A LEVEL OF 3 AND WAS PREVIOUSLY MEDICATED ORDERED. PATIENT IS AWARE OF NPO AFTER MIDNIGHT FOR PROCEDURE IN THE MORNING AND IS AWAITING TO SIGN CONSENT. BED IS IN LOWEST POSITION, IV FLUIDS ARE RUNNING AT ORDERED RATE, BED RAILS ARE UP, CALL LIGHT IS WITHIN EASY REACH, WILL CONTINUE TO MONITOR.
[2019-06-14] MEDS: MESALAMINE 500 MG CAPCR PO SCH (21:00)
[2019-06-14] MEDS: SIMVASTATIN 20 MG TAB PO SCH (21:45)
[2019-06-14] MEDS ORDERED: GABAPENTIN100 MG PO (21:51)
[2019-06-14] MEDS: GABAPENTIN 100 MG CAP PO SCH (22:15)
[2019-06-15] VITALS (7 sets, daily range): BP systolic 121–136; BP diastolic 56–63
[2019-06-15] MEDS: SODIUM CHLORIDE 0.9% 1000ML 1,000 ML IV SCH ×2 (04:37→17:15)
[2019-06-15 04:49] LABS: BILIRUBIN,URINE NEGATIVE (NEGATIVE); CLARITY,URINE CLOUDY (CLEAR); COLOR,URINE YELLOW (YELLOW); KETONES,URINE NEGATIVE (NEGATIVE); LEUKOCYTE ESTERASE ,URINE 1+ (NEGATIVE); NITRITE,URINE NEGATIVE (NEGATIVE); PROTEIN,URINE DIPSTICK NEGATIVE (NEGATIVE); URINE UROBILINOGEN 0.2 mg/dL (0.2 - 1)
[2019-06-15 04:52] LABS: BACTERIA,URINE MANY /HPF; EPITHELIAL CELLS,URINE MODERATE /LPF; RENAL EPITHELIAL CELLS,URINE FEW; TRANSITIONAL EPI CELLS,URINE FEW; WBC,URINE (MAN) >50 /HPF (0-5)
[2019-06-15] MEDS: ONDANSETRON HCL INJ 2MG/ML 2ML 2 MG/ML VIAL IV PRN (06:43)
[2019-06-15] MEDS: MORPHINE SULFATE INJ 4 MG/ML INJ 1ML IV PRN (06:43)
--- NOTE | 2019-06-15 07:27 | NUR ---
PATIENT IN BED RESTING WITH HEAD OF BED ELEVATED, NO DISTRESS NOTED. O2 IN PLACE VIA N/C. BED IN LOWER POSITION AND LOCKED. CALL LIGHT AT REACH.
[2019-06-15] MEDS: FAMOTIDINE 20 MG TAB PO SCH ×2 (07:30→17:23)
[2019-06-15] MEDS: MULTIVITAMINS/MINERALS TAB PO SCH (09:00)
[2019-06-15] MEDS: MESALAMINE 500 MG CAPCR PO SCH ×4 (09:00→21:58)
[2019-06-15] MEDS: ASPIRIN 325 MG TAB EC PO SCH (09:00)
[2019-06-15] MEDS: DULOXETINE HCL 30 MG DELAYED RELEASE PO SCH (09:00)
[2019-06-15] MEDS: CLONIDINE HCL 0.2 MG TAB PO SCH ×3 (09:00→21:58)
[2019-06-15] MEDS: ENOXAPARIN 30 MG/0.3 ML SYR SC SCH (09:52)
--- NOTE | 2019-06-15 10:35 | NUR ---
Introductory visit. Director Communications provided pastoral presence, hospitality, and supportive listening. Director Communications informed pt of the scope of Utility Bill Complaints Investigator Services and availability. ARNOLD TAY Director Communications Spiritual Care Department O: [phone]
--- NOTE | 2019-06-15 11:14 | NUR ---
CALL RECEIVED FROM OR ABOUT PATIENT READINESS. PATIENT NOTIFIED, NO COMPLAIN VOICED.
--- NOTE | 2019-06-15 11:45 | NUR ---
IMM SIGNED AND ON CHART COPY LEFT WITH PATIENT GAVE CARD FOR QUESTIONS AND OR CONCERNS.
--- NOTE | 2019-06-15 12:50 | NUR ---
PATIENT OFF UNIT TO OR.
[2019-06-15] MEDS ORDERED: BUPIVACAINE HCL 0.5% INJ 30 ML VIAL INJ ONE (14:20)
[2019-06-15] MEDS ORDERED: DEXAMETHASONE SOD PHOS INJ 4 MG/ML VIAL ONE (14:43)
[2019-06-15] MEDS ORDERED: PHENYLEPHRINE HCL 1% 10 MG/ML VIAL ONE (14:43)
[2019-06-15] MEDS ORDERED: ONDANSETRON HCL INJ 2MG/ML 2ML 2 MG/ML VIAL ONE (14:43)
[2019-06-15] MEDS ORDERED: SEVOFLURANE INHAL SOLN 250 ML PEN BTL ONE (14:43)
[2019-06-15] MEDS ORDERED: LIDOCAINE HCL 2% LOCAL INJ 5 ML SDV VIAL INJ ONE (14:43)
[2019-06-15] MEDS ORDERED: PROPOFOL IV EMULSION 10 MG/ML 20 ML VIAL ONE (14:43)
--- NOTE | 2019-06-15 15:33 | NUR ---
Operative Note - Orthopedic Surgery PREOPERATIVE DIAGNOSES: Left Valgus Impacted Femoral Neck Fracture POSTOPERATIVE DIAGNOSES: Left Valgus Impacted Femoral Neck Fracture OPERATION PERFORMED: Closed Reduction, Percutaneous Pinning Right/Left Hip SURGEON: Basia Rizo DO REGION MANAGER: Michael Presley, Licensed Surgical Assistand (needed due to the complexity of the case) ANESTHESIA: General. EBL: 5 cc COMPLICATIONS: None IMPLANTS: DESCRIPTION OF OPERATION: The patient was taken to the operating room and placed under general anesthesia. The left lower extremity and right/left upper e xtremity had all bony prominences well padded and secured. SCD was placed on the right/left lower leg. Preoperative Clindamycin antibiotics were given. The patients right/left lower extremities were sterilely prepped and draped in the usual fashion. A time-out was performed to identify the correct extremity. The left hip was visualized under flouroscopy and the hip was adducted to improve the position of the fracture and to allow for pinning. Next and incisio n was made lateral to the greater trochanter. A guide pin was introduced throug h the inferior portion neck and head under flouroscopic guidance and deemed to be in adequate position. Two other guide pins were inserted under similar fashion along the superoanterior and superoposterior portion of the neck and head. The intraosseous length of the pin was measured and three Asnis III Parti ally Threaded Cannulated Screws were introduced into the neck and head. The anterosuperior screw was 6.5x85mm TL 20 mm, posterosuperior screw was 6.5 x 90 mm TL 25mm and inferior 8.0 x 80 mm TL 25mm. The guide pins were removed and final imaging was taken and interpreted to be in adequate position. The incisions were thoroughly irrigated, and the fascia was closed with 0 vicryl, and the subcutaneous tissue was closed with 2-0 vicryl. 3-0 Monocryl we re placed to close the skin and the skin was then cleaned. 20 cc of 0.5% Marcai ne was injected near the incision. An Aquacel and compressive dressing was placed.
[2019-06-15] MEDS ORDERED: FENTANYL CITRATE/PF 100MCG/2 ML INJ ONE (15:53)
--- NOTE | 2019-06-15 17:00 | NUR ---
ARRIVED VIA BED FROM PACU, AA&OX3, 2L NC, DRESSING CDI TO R HIP, INTERMITTENT PAIN TO R HIP, 05/28 AT THIS TIME, DTV, ORIENTED TO ROOM AND CALL LIGHT SYSTEM, CALL LIGHT WITHIN REACH
--- NOTE | 2019-06-15 17:10 | NUR ---
PATIENT TRANSFERRED TO MED SURG 1 AFTER SURGERY. REPORT GIVEN TO RECEIVING NURSE. ALL PERSONAL ITEMS GIVEN TO PATIENT.
--- NOTE | 2019-06-15 21:27 | NUR ---
Daughter phone number: [phone]
[2019-06-15] MEDS ORDERED: HYDROCODONE/APAP 5MG-325MG TAB PO PRN (21:30)
[2019-06-15] MEDS ORDERED: MORPHINE SULFATE INJ 4 MG/ML INJ 1ML IV PRN (21:30)
[2019-06-15] MEDS ORDERED: MORPHINE SULFATE 2 MG/ML SYR 1ML IV PRN (21:45)
[2019-06-15] MEDS: CEFAZOLIN SOD 1 GM/NS 50ML 50 ML IV SCH (21:58)
[2019-06-15] MEDS: SIMVASTATIN 20 MG TAB PO SCH (21:58)
--- NOTE | 2019-06-15 23:48 | NUR ---
Please see written progress note 88 year old community ambulating female without assistive device presents to the ED after a mechanical fall in bed with complaints of left hip pain. Patient had CT of hip done which disclose left valgus impacted femoral neck fracture. Patient underwent orthopedic intervention and had left hip closed reduction, percutaneous pinning. Ptient is doing fine in no distress. NO chest pain, no shortness of breath, no fever, no chill.
--- NOTE | 2019-06-15 23:48 | NUR ---
Please see written progress notes
--- NOTE | 2019-06-15 23:48 | NUR ---
88 year old community ambulating female without assistive device presents to the ED after a mechanical fall in bed with complaints of left hip pain. Patient had CT of hip done which disclose left valgus impacted femoral neck fracture. Patient underwent orthopedic intervention and had left hip closed reduction, percutaneous pinning. Ptient is doing fine in no distress. NO chest pain, no shortness of breath, no fever, no chill. Please see progress note.
[2019-06-16] VITALS (8 sets, daily range): BP systolic 88–117; BP diastolic 50–56
[2019-06-16 06:10] LABS: HEMATOCRIT 40.1 % (34.2-44.1); HEMOGLOBIN 12.7 g/dL (12.0-16.0)
[2019-06-16] MEDS: CEFAZOLIN SOD 1 GM/NS 50ML 50 ML IV SCH ×2 (06:33→15:00)
[2019-06-16] MEDS: FAMOTIDINE 20 MG TAB PO SCH ×2 (07:30→16:55)
[2019-06-16] MEDS: SODIUM CHLORIDE 0.9% 1000ML 1,000 ML IV SCH ×2 (08:00→21:29)
[2019-06-16] MEDS: CLONIDINE HCL 0.2 MG TAB PO SCH (09:00)
[2019-06-16] MEDS: DULOXETINE HCL 30 MG DELAYED RELEASE PO SCH (09:00)
[2019-06-16] MEDS: MESALAMINE 500 MG CAPCR PO SCH ×4 (09:00→21:28)
[2019-06-16] MEDS: ASPIRIN 325 MG TAB EC PO SCH (10:00)
[2019-06-16] MEDS: MULTIVITAMINS/MINERALS TAB PO SCH (10:00)
--- NOTE | 2019-06-16 10:00 | NUR ---
SPOKE WITH MD WADE, MADE AWARE OF ELEVATED TEMP, ORDERS NOTED,
[2019-06-16] MEDS: ACETAMINOPHEN 325 MG TAB PO PRN (10:20)
--- NOTE | 2019-06-16 12:10 | NUR ---
PHYSICAL THERAPIST ATTEMPTED TO GET PT OOB, PT BP LOW, SEE EMR, SEE NOTES, PT TOLERATING PO AT THIS TIME, CALL LIGHT WITHIN REACH
--- NOTE | 2019-06-16 13:02 | NUR ---
RECHECKED BP, TELEPHONED MD SILVERMAN TO MAKE AWARE, AWAITING CALL BACK
--- NOTE | 2019-06-16 15:33 | NUR ---
ORTHOPEDIC PROGRESS NOTES Patient seen & examined resting comfortably. Pain controlled. No acute events. VS 98.9 HR 80 RR 16 BP 88/50 O2 92% Left hip - dressing clean, dry and intact Motor: + EHL, FHL, TA, G/S Sensation grossly intact Pulses + DP, Post tib Compartments soft negative calf tenderness 88 yo F s/p left hip closed reduction percutaneous pinning POD #1 Analgesics DVT Prophylaxis PT WBAT Orthopedically stable If H/H remains stable tomorrow, patient will be orthopedically stable for discharge Can keep dressing on until follow up in 2 weeks in new office. Basia Rizo, DO [facility] [address], [address] [place] [address]
[2019-06-16] MEDS ORDERED: SODIUM CHLORIDE 0.9% 1000ML 500 ML IV ONE (16:00)
[2019-06-16] MEDS ORDERED: ENOXAPARIN SOD INJ 40 MG/0.4 ML SYR SC SCH (17:00)
--- NOTE | 2019-06-16 19:28 | NUR ---
Per daughter, she would rather take patient home with her and then have PT thru [facility] outpatient clinic or home health PT vs SNF placement if patient is safe to go home. Addendum: 06/16/19 at 1931 by Randall Carreon PT Amended: Links added.
[2019-06-16] MEDS: GABAPENTIN 100 MG CAP PO SCH (21:28)
[2019-06-16] MEDS: SIMVASTATIN 20 MG TAB PO SCH (21:28)
[2019-06-17] VITALS (8 sets, daily range): BP systolic 113–155; BP diastolic 53–72
[2019-06-17 06:33] LABS: BASOPHILS % 0.4 % (0.0-1.0); EOSINOPHILS # (AUTO) 0.2 (0.0-0.4); EOSINOPHILS % 2.5 % (0.0-6.0); HEMATOCRIT 37.6 % (34.2-44.1); HEMOGLOBIN 12.1 g/dL (12.0-16.0); LYMPHOCYTES # (AUTO) 1.1 (1.0-3.2); LYMPHOCYTES % 13.3 % (18.0-39.1); MEAN CORPUSCULAR HEMOGLOBIN 32.5 pg (28-32); MEAN CORPUSCULAR HGB CONC 32.2 g/dL (31-35); MEAN CORPUSCULAR VOLUME 101.1 fL (81-99); MONOCYTES # (AUTO) 0.6 (0.2-0.8); MONOCYTES % 7.3 % (4.4-11.3); NEUTROPHILS # (AUTO) 6.2 (2.1-6.9); NEUTROPHILS % 76.1 % (38.7-80.0); PLATELET COUNT 88 x10e3/uL (140-360); RED BLOOD COUNT 3.72 x10e6/uL (3.6-5.1); RED CELL DISTRIBUTION WIDTH 11.9 % (11.7-14.4)
[2019-06-17 07:04] LABS: ANION GAP 9.8 mmol/L (8-16); BLOOD UREA NITROGEN 13 mg/dL (7-26); BUN/CREATININE RATIO 19 (6-25); CALCIUM 7.7 mg/dL (8.4-10.2); CARBON DIOXIDE 24 mmol/L (22-29); CHLORIDE 111 mmol/L (98-107); EST GLOMERULAR FILTRATION RATE > 60 ML/MIN (60-); GLUCOSE 110 mg/dL (74-118); POTASSIUM 3.8 mmol/L (3.5-5.1); SODIUM 141 mmol/L (136-145)
[2019-06-17] MEDS: MESALAMINE 500 MG CAPCR PO SCH ×4 (08:44→21:04)
[2019-06-17] MEDS: FAMOTIDINE 20 MG TAB PO SCH ×2 (08:44→17:52)
[2019-06-17] MEDS: ASPIRIN 325 MG TAB EC PO SCH (08:44)
[2019-06-17] MEDS: DULOXETINE HCL 30 MG DELAYED RELEASE PO SCH (08:44)
--- NOTE | 2019-06-17 08:45 | NUR ---
SPOKE WITH MD SILVERMAN, MADE AWARE OF URINE CULTURE RESULTS, ORDERS NOTED
[2019-06-17] MEDS: MULTIVITAMINS/MINERALS TAB PO SCH (09:01)
[2019-06-17 10:17] LABS: PLATELET ESTIMATE MODERATELY DECREASED
[2019-06-17] MEDS: SODIUM CHLORIDE 0.9% 1000ML 1,000 ML IV SCH ×2 (10:55→21:04)
[2019-06-17] MEDS: ACETAMINOPHEN 325 MG TAB PO PRN (11:00)
--- NOTE | 2019-06-17 11:44 | NUR ---
PT SITTING ON SIDE OF BED, TOLERATING LUNCH AT THIS TIME
--- NOTE | 2019-06-17 14:00 | NUR ---
REPORT RECEIVED FROM BRIAN TAVARES WALKING ROUNDS COMPLETE.
[2019-06-17] MEDS: MEROPENEM 500MG/ NS 50ML 50 ML IV SCH ×2 (14:20→21:30)
--- NOTE | 2019-06-17 19:10 | NUR ---
Received the patient in report. lyeing in the bed.stable condition.
--- NOTE | 2019-06-17 19:42 | NUR ---
ESBL URINE POSITIVE.NOTIFIED TO CHARGE NURSE
--- NOTE | 2019-06-17 21:00 | NUR ---
Assessment done.no resp.distress.no pain voiced.aaox3.nasal cannula 2 litre o2 getting.dressing to left hip is dry.iv fluid running.bed locked and in lowest position.phone and call light within reach.instructed to call for assistance as needed.
[2019-06-17] MEDS: SIMVASTATIN 20 MG TAB PO SCH (21:04)
[2019-06-17] MEDS: GABAPENTIN 100 MG CAP PO SCH (21:04)
--- NOTE | 2019-06-17 21:26 | NUR ---
REPORT GIVEN TO BRIAN HOSKINS.
--- NOTE | 2019-06-17 21:31 | NUR ---
TRANSFERRING TO ROOM #290 WITH ALL THE BELONGINGS IN A STABLE CONDITION.
--- NOTE | 2019-06-17 21:38 | NUR ---
INFORMED TO DAUGHTER ABOUT TRANSFER OF PATIENT TO ROOM #290 .
--- NOTE | 2019-06-17 21:45 | NUR ---
Care transferred to oncoming nurse. Patient stable, no issues or concerns noted.
[2019-06-18] VITALS (8 sets, daily range): BP systolic 105–166; BP diastolic 52–83
[2019-06-18] MEDS: HYDRALAZINE HCL 20 MG/ML VIAL IV PRN (01:47)
[2019-06-18] MEDS: MEROPENEM 500MG/ NS 50ML 50 ML IV SCH ×3 (05:36→21:21)
[2019-06-18 05:57] LABS: BASOPHILS % 0.3 % (0.0-1.0); EOSINOPHILS # (AUTO) 0.1 (0.0-0.4); EOSINOPHILS % 1.5 % (0.0-6.0); HEMATOCRIT 36.8 % (34.2-44.1); LYMPHOCYTES # (AUTO) 1.2 (1.0-3.2); LYMPHOCYTES % 12.3 % (18.0-39.1); MEAN CORPUSCULAR HEMOGLOBIN 32.3 pg (28-32); MEAN CORPUSCULAR HGB CONC 32.6 g/dL (31-35); MEAN CORPUSCULAR VOLUME 98.9 fL (81-99); MONOCYTES # (AUTO) 0.7 (0.2-0.8); MONOCYTES % 7.1 % (4.4-11.3); NEUTROPHILS # (AUTO) 7.5 (2.1-6.9); NEUTROPHILS % 78.5 % (38.7-80.0); PLATELET COUNT 115 x10e3/uL (140-360); RED BLOOD COUNT 3.72 x10e6/uL (3.6-5.1); RED CELL DISTRIBUTION WIDTH 11.9 % (11.7-14.4)
--- NOTE | 2019-06-18 07:15 | NUR ---
PATIENT IN BED RESTING WITH NO S/S OF DISCOMFORT. DRESSING DRY AND INTACT TO LEFT HIP, SCD IN PLACE. BED IN LOWER POSITION, CALL LIGHT AT REACH.
[2019-06-18] MEDS: FAMOTIDINE 20 MG TAB PO SCH ×2 (08:00→16:30)
[2019-06-18] MEDS: MESALAMINE 500 MG CAPCR PO SCH ×4 (09:21→21:00)
[2019-06-18] MEDS: MULTIVITAMINS/MINERALS TAB PO SCH (09:21)
[2019-06-18] MEDS: ASPIRIN 325 MG TAB EC PO SCH (09:21)
[2019-06-18] MEDS: DULOXETINE HCL 30 MG DELAYED RELEASE PO SCH (09:21)
--- NOTE | 2019-06-18 10:35 | NUR ---
ASSESSMENT: Spiritual concern Pt is lonely. Pt states she is active with "yoga, [employer], family" and is having difficulty coping with isolation. Pt expressed concern about the impact of COVID, especially grieving families. Intervention: Provided unhurried empathic listening. Facilitated identification of emotions. Provided prayer and reminder of how to reach pesticide applicator, if needed. Outcome: No need to follow at this time. ARNOLD TAY Pharmacy Informatics Specialist Spiritual Care Department O: [phone]
[2019-06-18] MEDS ORDERED: ONDANSETRON HCL 4 MG ORAL DISINTEGRATING TAB PO PRN (11:00)
--- NOTE | 2019-06-18 12:29 | NUR ---
SPOKE WITH PA REGARDING PATIENT HAVING DIARRHEA, NEWS ORDER RECEIVED.
[2019-06-18] MEDS: ACETAMINOPHEN 325 MG TAB PO PRN (13:00)
--- NOTE | 2019-06-18 13:37 | NUR ---
[id number] late entery 06/17/2019
--- NOTE | 2019-06-18 14:05 | Consultation ---
DATE OF CONSULTATION: REASON FOR CONSULTATION: UTI, sepsis, ESBL. HISTORY OF PRESENT ILLNESS: This patient who is an 88-year-old female, comes into the emergency room because she is not feeling well, fever and chills. The patient who has history of multiple procedures done on the bladder. She is just see Dr. Alfred who is an Ob-Instrumentation Instructor/Urology. This is a bladder dysfunction and multiple procedures recently. She is coming with fever and chills and urgency frequency. She is known to have history of multidrug resistant. I was asked to see her. The patient is currently lying in bed comfortably. PAST MEDICAL HISTORY: Ataxia, kidney stone. PAST SURGICAL HISTORY: Appendectomy, hysterectomy, shoulder surgery, vertebral fusion, kidney stones, pessary placement, removal, placement, bladder dysfunction. REVIEW OF SYSTEMS: HEENT: Negative. PULMONARY: Negative. CARDIAC: Negative. : Negative. GI: Negative. : There is urgency or frequency. SKIN: There is no rash. I reviewed all her record. Discussed with Dr. Herrera. The patient was seen and examined. Discussed with medical team. LABORATORY DATA: Showed a white count of 9.8, hemoglobin of 13. Sodium 141, potassium 3.8, creatinine 0.7. PHYSICAL EXAMINATION: GENERAL: She is currently alert, oriented, does not seem acute distress. VITAL SIGNS: T-max 102.0. HEENT: She is not icteric. NECK: Supple. CHEST: Clear. HEART: S1, S2. ABDOMEN: Soft. Bowel sounds present. No tenderness. EXTREMITIES: No edema. SKIN: No rash. IMPRESSION: Sepsis on admission. Fever on admission. Agree with meropenem. Obtain blood cultures, urine cultures, which is ordered. Continue IV fluid. Recheck CBC. Recheck Chem panel. Other medical problem all seem reviewed. Discussed with Internal Medicine, seems to be stable for now. We will follow with you. MD ИРИНА Adams/SAUNDRA /[id number]
[2019-06-18] MEDS: CHOLESTYRAMINE 4 GM PACKET PO SCH ×2 (14:15→18:30)
--- NOTE | 2019-06-18 15:04 | NUR ---
PATIENT AMBULATED IN ROOM WITH PHYSICAL THERAPY, REPOSITIONED IN BED WITH CALL LIGHT AT REACH.
[2019-06-18] MEDS: VANCOMYCIN 250MG/5ML ORAL SOLN PO SCH (17:40)
--- NOTE | 2019-06-18 17:50 | Consultation ---
DATE OF CONSULTATION: 06/18/[address] Herrera. HISTORY OF PRESENT ILLNESS: Mariel Ibarra is an 88-year-old female referred to me for evaluation of thrombocytopenia. The patient presented with left hip fracture. The patient's history cannot be obtained. FAMILY HISTORY: Could not be obtained. ALLERGIES: REPORTED NONE. MEDICATIONS: At this time: 1. Meropenem. 2. Normal saline. 3. Tylenol. 4. Aspirin. 5. Cholestyramine. 6. Cymbalta. 7. Pepcid. 8. Gabapentin. 9. Hydralazine. 10. Hydrocodone. 11. Lisinopril. 12. Pentasa. 13. Morphine. 14. Multivitamins. 15. Ondansetron. REVIEW OF SYSTEMS: HEENT: Normal. CARDIAC: History of hypertension, hyperlipidemia. RESPIRATORY: Normal. GI: History of colitis. : Normal. MUSCULOSKELETAL: Left hip fracture. PHYSICAL EXAMINATION: GENERAL: A moderately built female. LYMPH NODES: No palpable adenopathy. HEART: Within normal limits. LUNGS: Clear. ABDOMEN: Soft. RECTAL: Could not be done. VAGINAL: Could not be done. CENTRAL NERVOUS SYSTEM: Cannot be examined properly. LABORATORY DATA: Lab investigations of interest show the patient to have a hemoglobin on 06/14/2019 to be 13.6, hematocrit 41, white count of 9800, platelets of 137,000. On 06/16, the platelets dropped down 88, on 06/17 of 115. Chemistry shows the sodium of 140, potassium 3.9, chloride 107, CO2 28. Total protein low at 6.0, calcium low at 7.7. Glucose is running perfectly fine. Imaging shows the patient to have a transverse fracture of the left femoral neck with mild impaction and valgus angulation. Pathology of the colon on June 08, 2017 shows the patient to have colitis. IMPRESSION: 1. Thrombocytopenia. 2. Urinary tract infection with Escherichia coli. 3. Transverse fracture of the left femoral neck. 4. History of colitis. 5. History of hypertension. 6. History of major depression. 7. History of hyperlipidemia. 8. History of nausea. PLAN, COMMENTS AND SUGGESTIONS: Continue to follow up. The patient had transient thrombocytopenia, possibly related to the infection and on the antibiotics, the platelets have come up above 100,000. I will watch this patient closely. MD MECHE Kay/SAUNDRA /[id number]
--- NOTE | 2019-06-18 19:11 | Consultation ---
DATE OF CONSULTATION: 06/17/2019 REASON FOR CONSULTATION: Concerned about sepsis. HISTORY OF PRESENT ILLNESS: This patient was seen and examined on June 16. The patient is an 88-year-old female. DICTATION ENDS HERE MD ИРИНА Adams/SAUNDRA /[id number]
--- NOTE | 2019-06-18 20:00 | NUR ---
Received change of shift report from AM nurse. Walking rounds completed.
[2019-06-18] MEDS: SIMVASTATIN 20 MG TAB PO SCH (21:00)
[2019-06-18] MEDS: GABAPENTIN 100 MG CAP PO SCH (21:00)
[2019-06-18] MEDS: SODIUM CHLORIDE 0.9% 1000ML 1,000 ML IV SCH (21:20)
[2019-06-19] VITALS (9 sets, daily range): BP systolic 105–150; BP diastolic 54–75
[2019-06-19] MEDS: SODIUM CHLORIDE 0.9% 1000ML 1,000 ML IV SCH ×2 (02:40→16:47)
[2019-06-19] MEDS: MEROPENEM 500MG/ NS 50ML 50 ML IV SCH ×3 (06:00→21:05)
[2019-06-19] MEDS: VANCOMYCIN 250MG/5ML ORAL SOLN PO SCH ×2 (06:00)
[2019-06-19] MEDS: FAMOTIDINE 20 MG TAB PO SCH ×2 (08:05→16:47)
[2019-06-19] MEDS: MULTIVITAMINS/MINERALS TAB PO SCH (09:44)
[2019-06-19] MEDS: DULOXETINE HCL 30 MG DELAYED RELEASE PO SCH (09:44)
[2019-06-19] MEDS: MESALAMINE 500 MG CAPCR PO SCH ×4 (09:44→21:05)
[2019-06-19] MEDS: ASPIRIN 325 MG TAB EC PO SCH (09:44)
[2019-06-19] MEDS: CHOLESTYRAMINE 4 GM PACKET PO SCH ×2 (09:45→16:47)
[2019-06-19] MEDS: HYDROCODONE/APAP 10MG-325MG TAB PO PRN (10:25)
--- NOTE | 2019-06-19 10:25 | NUR ---
Medicated for comp of pain post working with Phys therapy. Addendum: 06/19/19 at 1145 by Nadia Murillo RN Amended: Links added.
--- NOTE | 2019-06-19 15:00 | NUR ---
Consult to Dr. Aguirre for V-Keyerio investion received form Dr. Herrera.
--- NOTE | 2019-06-19 19:46 | Progress Note ---
DATE: 06/19/2019 SUBJECTIVE: The patient seen and evaluated. The patient is in no distress. Quite worried about the fact that previously she has had intervention with placement of pessary, and the patient does have a history of bladder dysfunction and kidney stones and has a followup with the patient's chinese instructor, Dr. Yoandy Rdz in [place]. The patient stated that in the past pessary device has been removed. She feels that they might have been partially removed. She denies having fever or chills. She is participating with physical therapy. She is status post left hip repair. Presently being treated for the ESBL UTI and does have a history of drug resistant. She has not experienced recent fever or chills. OBJECTIVE: GENERAL: The patient is alert and oriented to person, time, and place. The patient is in no distress. VITAL SIGNS: Blood pressure 105/54, respirations 20, pulse 86, and temperature 96.4. HEENT: Head is normocephalic, atraumatic. Extraocular muscles are intact. NECK: Supple. No JVD. LUNGS: Clear to auscultation. HEART: Regular rate and rhythm. No murmurs or gallops. ABDOMEN: Soft, nontender. EXTREMITIES: No edema. NEUROLOGIC: Alert and oriented x3. No focal weakness. PSYCHIATRIC: Normal mood. Normal tone. SKIN: No rashes. LABORATORY DATA: From May 2019, hemoglobin 10.0 and white blood cell count 9.58. ASSESSMENT: 1. Status post left hip fracture with closed reduction. 2. Urinary tract infection, drug resistant ESBL. 3. Crohn disease. 4. Hypothyroidism. 5. Diarrhea. 6. Thrombocytopenia. PLAN OF CARE: Continue present care. List of medications reviewed. Continue Track Mechanic consultation. We will discuss with ID. MD ABEBA Arboleda/SAUNDRA /[id number] LILIA
[2019-06-19] MEDS: SIMVASTATIN 20 MG TAB PO SCH (21:05)
[2019-06-19] MEDS: GABAPENTIN 100 MG CAP PO SCH (21:05)
--- NOTE | 2019-06-19 21:05 | NUR ---
PATIENT IS RESTING IN BED IN STABLE CONDITION, NO SIGNS OF DISTRESS NOTED. NASAL CANNULA IS PATENT AND FLOWING AND RUNNING AT 2 LITERS, AND PATIENT VOICES NO PAIN AT THIS TIME. DRESSING ON LEFT HIP IS CLEAN DRY AND INTACT, NO DRAINAGE NOTED. BED IS IN LOWEST POSITION, IV FLUIDS ARE RUNNING AT ORDERED RATE, BED RAILS ARE UP, CALL LIGHT IS WITHIN EASY REACH, WILL CONTINUE TO MONITOR.
[2019-06-20] VITALS (8 sets, daily range): BP systolic 113–195; BP diastolic 55–79
[2019-06-20] MEDS: MEROPENEM 500MG/ NS 50ML 50 ML IV SCH ×3 (06:00→21:20)
[2019-06-20] MEDS: HYDRALAZINE HCL 20 MG/ML VIAL IV PRN (06:01)
[2019-06-20] MEDS: SODIUM CHLORIDE 0.9% 1000ML 1,000 ML IV SCH ×2 (06:04→18:40)
[2019-06-20] MEDS: DULOXETINE HCL 30 MG DELAYED RELEASE PO SCH (09:00)
[2019-06-20] MEDS: FAMOTIDINE 20 MG TAB PO SCH ×2 (09:01→16:03)
[2019-06-20] MEDS: MULTIVITAMINS/MINERALS TAB PO SCH (09:02)
[2019-06-20] MEDS: MESALAMINE 500 MG CAPCR PO SCH ×4 (09:02→20:29)
[2019-06-20] MEDS: CHOLESTYRAMINE 4 GM PACKET PO SCH ×2 (09:02→16:03)
[2019-06-20] MEDS: ASPIRIN 325 MG TAB EC PO SCH (09:02)
--- NOTE | 2019-06-20 10:34 | Diagnostic Imaging Report ---
EXAMINATION: CHEST 2 VIEWS INDICATION: ^COUGHING ^[id number] ^1000 ^Y COMPARISON: None FINDINGS: PA and lateral views TUBES and LINES: None. LUNGS: Patchy opacities of the lung bases, left greater than right, likely passive atelectasis. No evidence of pulmonary edema. PLEURA: Small bilateral pleural effusions. No pneumothorax. HEART AND MEDIASTINUM: The heart is at the upper limit of normal in size. BONES AND SOFT TISSUES: No acute osseous lesion. Advanced shoulder degenerative change. Soft tissues are unremarkable. UPPER ABDOMEN: No free air under the diaphragm. IMPRESSION: Small bilateral pleural effusions. Airspace disease of the lung bases, left greater than right, are favored as passive atelectasis. Signed by: Norman Estrada MD on 06/20/2019 10:30 AM
[2019-06-20] MEDS: HYDROCODONE/APAP 10MG-325MG TAB PO PRN (10:44)
--- NOTE | 2019-06-20 16:30 | NUR ---
Post void residual done and is 0ml.
--- NOTE | 2019-06-20 17:44 | Consultation ---
DATE OF CONSULTATION: HISTORY OF PRESENT ILLNESS: Thank you very much for asking me to see Ms. Mariel Ibarra. This is an 88-year-old, who came in the hospital after she fell off her bed. She was found to have urinary tract infection ESBL. She has vaginal pessary that was removed due to UTI in the past and then 2 months later was placed, and she had this pessary by Dr. Alfred for 2 years with no major complaints. She had a history of minor stroke, Crohn disease, and high blood pressure. PAST SURGICAL HISTORY: Significant for hysterectomy, intestinal resection. SOCIAL HISTORY: Denies smoking, alcohol, or drug abuse. PHYSICAL EXAMINATION: VITAL SIGNS: Stable. CHEST: Clear to auscultation. CARDIOVASCULAR: Regular rate and rhythm. ABDOMEN: Soft and nontender. : Vaginal exam showed a ring pessary with a knob in situ with no obstruction of the urethral flow. Also, the patient mentioned that she had no problem of voiding and incomplete emptying of her bladder. ASSESSMENT AND PLAN: 1. An 88-year-old with urinary tract infection and then the pessary inside the vagina. We will have no problem in continuing with the pessary, as she said that this has improved her symptoms of incontinence dramatically in the past. Also, as there is no clinical evidence of high residual volume, then I would recommend to keeping the pessary in place and doing test for the residual volume using a bladder scan and if it is less than 100 mL, I would not change the plan. If it is more than that, I would recommend probably placing a urinary catheter or suprapubic bladder catheter to help the healing of the urinary tract infection at that stage. 2. The patient has history of fractured femur and then treated surgically recently. 3. Chronic hypertension and Crohn disease. Once again, thank you very much for asking me to see this patient. Please do not hesitate to call me if I can be of any further help in the future. Mar Aguirre MD DD/SAUNDRA /[id number] cc: Khoi Herrera MD
--- NOTE | 2019-06-20 17:57 | NUR ---
Nutrition Screen Note RD Recommendation for Physician: - Continue current diet Plan of Care: RD following, monitoring for tolerance and adequacy Nutrition reason for involvement: LOS Primary Diagnose(s): L femur neck fx s/p fall PMH: TIA, appendectomy, vertebral fx Ht: 64 in Wt: 124 lb BMI: 21.3 kg/m2 IBW: [address] Assessment: (06/19) 88 YOM admitted for femur fx s/p fall, seen today for LOS. Pt s/p closed reduction on 06/14. Unable to enter room per current precautions. Pt with 50-100% intake per chart. No wt loss reported on admit. No GI distress reported by RN. Chart reviewed. Labs and meds reviewed, currently on MVI with minerals. Will continue to monitor. Current Diet: Cardiac Malnutrition Evaluation (06/20/19) The patient does not meet criteria for a specified degree of malnutrition at this time. Will re-evaluate at follow-up as appropriate. Diet Education Needs Assessment: Diet education not indicated. Diet tolerance: tolerating po Nutrition Care Level: low Signed: Radhika Sanchez RD, LD, [facility]
--- NOTE | 2019-06-20 20:00 | NUR ---
Received change of shift report from AM nurse. Walking rounds completed.
[2019-06-20] MEDS: SIMVASTATIN 20 MG TAB PO SCH (20:29)
[2019-06-20] MEDS: GABAPENTIN 100 MG CAP PO SCH (20:29)
--- NOTE | 2019-06-20 23:50 | Progress Note ---
DATE: 06/20/2019 SUBJECTIVE/INTERVAL NOTE: The patient was seen and evaluated. The patient has been in no distress. Denies fever, no chills. No chest pain or shortness of breath. No nausea or vomiting. OBJECTIVE: GENERAL: The patient is alert and oriented to person, time, and place. The patient is in no distress. VITAL SIGNS: Blood pressure 134/66, respirations 18, pulse 86, temperature 98.5. HEENT: Head is normocephalic and atraumatic. NECK: Supple. No JVD. Thyroid was not enlarged. LUNGS: Clear to auscultation. HEART: Regular rate and rhythm. ABDOMEN: Soft, nontender. EXTREMITIES: No edema. NEURO: Nonfocal. LABORATORY DATA: CBC revealed hemoglobin 10.0, white blood cell count 9.58, and platelet count 115,000. Chem profile reveal sodium 141, potassium 3.8, chloride 111, CO2 of 24, BUN 13, creatinine 0.70. Total bilirubin 0.8, AST 25, ALT 21. ASSESSMENT: 1. Extended-spectrum beta-lactamases urinary tract infection. 2. Status post left hip fracture with closed reduction. 3. Crohn disease. 4. Hypothyroidism. 5. History of diarrhea. 6. Thrombocytopenia, resolved. PLAN OF CARE: Continue present care. Continue antibiotics and [facility]ISE DRILLER consultation requested. Per [facility]ISE D[facility]LL[facility], they recommend to keep the pessary in place today. Followup on outpatient with the patient's spanish tutor. Follow up with residual volume using a bladder scan. If it is less than 100 mL, continue present care as advised by Dr. Aguirre. Recommendations noted. If it more than 100 mL, they recommended probably a urinary catheter or suprapubic catheter to help the healing of the urinary tract infection. MD ABEBA Arboleda/SAUNDRA /[id number] MTDD
[2019-06-21] VITALS (8 sets, daily range): BP systolic 127–157; BP diastolic 64–78
--- NOTE | 2019-06-21 | NUR ---
Patient requesting pain and nausea meds. Meds given as ordered by . Addendum: 06/21/19 at 0509 by Nikky Fontaine RN error wrong patient
[2019-06-21] MEDS: ACETAMINOPHEN 325 MG TAB PO PRN (01:12)
--- NOTE | 2019-06-21 05:04 | NUR ---
Patient requesting pain meds q 4 hours and before. Meds given as ordered. Continue monitor.
[2019-06-21] MEDS: SODIUM CHLORIDE 0.9% 1000ML 1,000 ML IV SCH (08:00)
--- NOTE | 2019-06-21 08:20 | NUR ---
RECIEVED PT RESTING IN BED. RESP EVEN. DENIES OF ANY PAIN.
[2019-06-21] MEDS: MESALAMINE 500 MG CAPCR PO SCH ×4 (08:28→20:35)
[2019-06-21] MEDS: FAMOTIDINE 20 MG TAB PO SCH ×2 (08:28→16:28)
[2019-06-21] MEDS: MULTIVITAMINS/MINERALS TAB PO SCH (08:28)
[2019-06-21] MEDS: DULOXETINE HCL 30 MG DELAYED RELEASE PO SCH (08:28)
[2019-06-21] MEDS: CHOLESTYRAMINE 4 GM PACKET PO SCH ×2 (08:28→16:28)
[2019-06-21] MEDS: ASPIRIN 325 MG TAB EC PO SCH (08:29)
[2019-06-21] MEDS: HYDROCODONE/APAP 10MG-325MG TAB PO PRN (11:54)
[2019-06-21] MEDS: MEROPENEM 500MG/ NS 50ML 50 ML IV SCH ×2 (13:11→22:20)
--- NOTE | 2019-06-21 17:30 | NUR ---
PT UP IN BED ,DENIES PAIN ,DRSG CD&I.NEW IV RESTARTED TO RT FA 20 GAUGE TOLERATED WELL
[2019-06-21] MEDS: SIMVASTATIN 20 MG TAB PO SCH (20:35)
[2019-06-21] MEDS: GABAPENTIN 100 MG CAP PO SCH (20:35)
--- NOTE | 2019-06-21 22:55 | Progress Note ---
DATE: SUBJECTIVE: Events noted. No new reports. OBJECTIVE: GENERAL: The patient is alert and oriented to person, time, and place. VITAL SIGNS: Stable. Blood pressure 140/70, respirations 18, pulse 102, temperature 98.9. Examination is essentially unchanged. LABORATORY DATA: Labs from June 17 revealed hemoglobin 12.0, hematocrit 36.8, platelet count 115,000, has improved, WBC 9.58. Chem profile on June 17, 2019, revealed sodium 141, potassium 3.8, chloride 111, CO2 of 24, BUN 13, creatinine 0.70. ASSESSMENT AND PLAN: We will continue to monitor the patient. Continue present care as advised. Thrombocytopenia has improved. The plan of care to continue present care. Physical therapy as advised. WARE CLEANER evaluation noted. MD ABEBA Arboleda/SAUNDRA /[id number] MTDKarmen
[2019-06-22] VITALS: BP 135/61
--- NOTE | 2019-06-22 03:00 | NUR ---
PATIENT AMBULATORY TO WITH WALKER, STAND BY ASSIST, MILD IRRITATION/EXCORIATION NOTED TO BUTTOCKS, CALAZIME PROVIDED AND APPLIED, WILL CONT TO MONITOR
[2019-06-22 04:00] VITALS: BP 142/67
[2019-06-22] MEDS: MEROPENEM 500MG/ NS 50ML 50 ML IV SCH (05:35)
--- NOTE | 2019-06-22 06:05 | NUR ---
NOTICEABLE IMPROVEMENT TO BUTTOCK REDNESS/IRRITATION
[2019-06-22 07:26] VITALS: BP 144/67
[2019-06-22 07:52] LABS: BASOPHILS # (AUTO) 0.1 (0.0-0.1); BASOPHILS % 0.7 % (0.0-1.0); EOSINOPHILS # (AUTO) 0.2 (0.0-0.4); EOSINOPHILS % 1.7 % (0.0-6.0); HEMOGLOBIN 11.3 g/dL (12.0-16.0); LYMPHOCYTES % 9.2 % (18.0-39.1); MEAN CORPUSCULAR HEMOGLOBIN 32.8 pg (28-32); MEAN CORPUSCULAR HGB CONC 33.2 g/dL (31-35); MEAN CORPUSCULAR VOLUME 98.8 fL (81-99); MONOCYTES # (AUTO) 0.8 (0.2-0.8); MONOCYTES % 7.9 % (4.4-11.3); NEUTROPHILS # (AUTO) 8.5 (2.1-6.9); NEUTROPHILS % 79.9 % (38.7-80.0); PLATELET COUNT 211 x10e3/uL (140-360); RED BLOOD COUNT 3.44 x10e6/uL (3.6-5.1); RED CELL DISTRIBUTION WIDTH 11.7 % (11.7-14.4)
[2019-06-22 08:11] VITALS: BP 144/68
[2019-06-22] MEDS: ASPIRIN 325 MG TAB EC PO SCH (08:28)
[2019-06-22] MEDS: DULOXETINE HCL 30 MG DELAYED RELEASE PO SCH (08:28)
[2019-06-22] MEDS: CHOLESTYRAMINE 4 GM PACKET PO SCH (08:28)
[2019-06-22] MEDS: FAMOTIDINE 20 MG TAB PO SCH (08:28)
[2019-06-22] MEDS: MESALAMINE 500 MG CAPCR PO SCH ×2 (08:28→12:28)
[2019-06-22] MEDS: MULTIVITAMINS/MINERALS TAB PO SCH (08:28)
[2019-06-22 11:24] VITALS: BP 127/71
[2019-06-22] MEDS: HYDROCODONE/APAP 10MG-325MG TAB PO PRN (12:29)
[2019-06-22] MEDS ORDERED: ULTRAM 50MG50 MG PO (15:11)
[2019-06-22 16:00] VITALS: BP 102/51
--- NOTE | 2019-06-22 16:22 | NUR ---
[facility] CALLED PT IN ROOM. CHOICE FOR OUTPT PT GIVEN. PT HAD BEEN TO [facility] IN THE PAST AND REQUESTED TO RETURN; CLOSE TO HOME. CHOICE LETTER WAS SIGNED AND COPY TO PT AND COPY TO THE CHART. IMM LETTER EXPLAINED TO PT. PT VERBALIZED UNDERSTANDING. IMM LETTER SIGNED. COPY TO PT AND COPY TO CHART. Addendum: 06/22/19 at 1625 by Luz Valencia CM FAXED TO OUT PT PT @ OFF: [id number] / FAX: [phone]
--- NOTE | 2019-06-22 16:30 | NUR ---
Pt discharged home at this time. Pt is aox4 and 0 s/s of acute distress noted at time of discharge. Pt verbalized understanding of all discharge instructions and follow up appointments. Spoke with daughter on the phone and explained all discharge instructions also. Pt was sent home with prescriptions for pain medication.
--- NOTE | 2019-06-22 20:24 | Discharge Summary ---
This is coverage for Dr. Herrera. FOLLOWUP: Followup should be with Dr. Julio Phoenix and Dr. Rizo of orthopedics. ADMISSION DIAGNOSIS: Fall, fracture of left femoral neck. DISCHARGE DIAGNOSIS: Left femoral neck fracture, status post nailing and fixation. HOSPITAL COURSE: Ms. Ibarra is an 88-year-old female, who is very active and exercises and does yoga, who had a fall from bed. She experienced this hip fracture. She presented for nailing of this hip fracture, which was done successfully by radiology specialist. The patient slowly mobilized, but due to her good physical premorbid level, she was able to go back to mostly independent condition. She has a daughter, who lives close by and it was elected to eventually let her go home when she lives alone, but to continue with independent living. MEDICATION ON DISCHARGE: Please see discharge medication record for details. ACTIVITY: Fall precautions, but as feasible with assistive devices. DIET: The patient should go back on cardiac diet at discharge. Therapy recommendation per PT outpatient physical therapy recommended. Greater than 30 minutes in direct care and coordination on this date. This is coverage for Dr. Khoi Herrera. MD MERCY Farfan/SAUNDRA /[id number]
--- NOTE | 2019-06-28 09:20 | NUR ---
Operative Note - Orthopedic Surgery OPERATIVE NOTE ADDENDUM PREOPERATIVE DIAGNOSES: Left Valgus Impacted Femoral Neck Fracture POSTOPERATIVE DIAGNOSES: Left Valgus Impacted Femoral Neck Fracture OPERATION PERFORMED: Closed Reduction, Percutaneous Pinning Left Hip SURGEON: Basia Rizo DO PEBBLE MILL OPERATOR: Michael Presley, Licensed Photographic Double (needed due to the complexity of the case) ANESTHESIA: General. EBL: 5 cc COMPLICATIONS: None IMPLANTS: DESCRIPTION OF OPERATION: The patient was taken to the operating room and placed under general anesthesia. The left lower extremity and left upper extremity had all bony prominences well padded and secured. SCD was placed on the right lower leg. Preoperative antibiotics were given. The patients Left lower extremities were sterilely prepped and draped in the usual fashion. A time-out was performed to identify the correct extremity. The left hip was visualized under flouroscopy and the hip was adducted to improve the position of the fracture and to allow for pinning. Next and incisio n was made lateral to the greater trochanter. A guide pin was introduced throug h the inferior portion neck and head under flouroscopic guidance and deemed to be in adequate position. Two other guide pins were inserted under similar fashion along the superoanterior and superoposterior portion of the neck and head. The intraosseous length of the pin was measured and three Asnis III Partially Threaded Cannulated Screws were introduced into the neck and head. The anterosuperior screw was 6.5x85mm TL 20 mm, posterosuperior screw was 6.5 x 90 mm TL 25mm and inferior 8.0 x 80 mm TL 25mm. The guide pins were removed and final imaging was taken and interpreted to be in adequate position. The incisions were thoroughly irrigated, and the fascia was closed with 0 vicryl, and the subcutaneous tissue was closed with 2-0 vicryl. 3-0 Monocryl we re placed to close the skin and the skin was then cleaned. 20 cc of 0.5% Marcai ne was injected near the incision. An Aquacel and compressive dressing was placed.
== END 2019-06-22 16:25 | disposition home or self-care (01) | DRG 853 ==
LOC: ER 14:30 → ERHOLD 15:40 → MED/SURG3 18:03 → MED/SURG 06-15 16:26 → MED/SURG3 06-17 21:40
PROVIDERS: ADMIT Internal Medicine; ATTEND Internal Medicine
PROC: 0QS936Z Reposition Left Femoral Shaft with Intramedullary Internal Fixation Device, Percutaneous Approach (ICD-10-PCS; principal; 2019-06-15 14:34)
DX: A41.9 Sepsis, unspecified organism (principal); S72.92XA Unspecified fracture of left femur, initial encounter for closed fracture; N39.0 Urinary tract infection, site not specified; Z16.12 Extended spectrum beta lactamase (ESBL) resistance; K50.90 Crohn's disease, unspecified, without complications; W06.XXXA Fall from bed, initial encounter; B96.20 Unspecified Escherichia coli [E. coli] as the cause of diseases classified elsewhere; I10 Essential (primary) hypertension; D69.6 Thrombocytopenia, unspecified; F32.9 Major depressive disorder, single episode, unspecified; E78.5 Hyperlipidemia, unspecified
CPT/HCPCS: 36415; 71045; 71046; 76000; 80048; 80053; 81001; 82550; 82553; 82948; 84484; 85014; 85018; 85025; 85610; 85730; 86850; 86900; 87086; 87186; 87493; 93005; 96361; 97139; 99251; 99284; C1713; J0360; J0690; J1100; J1650; J2001; J2270; J2370; J2405; J3010; J7030; Q0162

== ENCOUNTER 2019-07-18 12:56 | Outpatient (RCR) | payer MEDICARE ==
[~2019-07-18 12:56] MED LIST changes: +GABAPENTIN100 MG PO; +ULTRAM 50MG50 MG PO
== END 2019-07-19 ==
LOC: PT 12:56
PROVIDERS: ATTEND Internal Medicine Critical Care Medicine
DX: S72.002A Fracture of unspecified part of neck of left femur, initial encounter for closed fracture (principal)

== ENCOUNTER 2019-08-17 12:59 | Outpatient (RCR) | payer MEDICARE | END 2019-08-19 | LOC: PT 12:59 | PROVIDERS: ATTEND Internal Medicine Critical Care Medicine | DX: M25.552 Pain in left hip (principal); S72.002A Fracture of unspecified part of neck of left femur, initial encounter for closed fracture; M25.652 Stiffness of left hip, not elsewhere classified; R26.9 Unspecified abnormalities of gait and mobility; M62.81 Muscle weakness (generalized) | CPT/HCPCS: 97139 ==

== ENCOUNTER 2020-02-13 10:57 | Outpatient (RCR) | payer MEDICARE | END 2020-02-18 | LOC: PT 10:57 | PROVIDERS: ATTEND Orthopaedic Surgery | DX: M62.81 Muscle weakness (generalized) (principal); M25.652 Stiffness of left hip, not elsewhere classified ==

== ENCOUNTER → 2020-03-20 | Outpatient (RCR) | payer MEDICARE | LOC: PT 02-26 10:59 | PROVIDERS: ATTEND Orthopaedic Surgery | DX: M25.652 Stiffness of left hip, not elsewhere classified (principal); M62.81 Muscle weakness (generalized) | CPT/HCPCS: 97139 ==

== ENCOUNTER 2020-03-26 14:56 | Outpatient (RCR) | payer MEDICARE | END 2020-04-20 | LOC: PT 14:56 | PROVIDERS: ATTEND Orthopaedic Surgery | DX: M25.652 Stiffness of left hip, not elsewhere classified (principal); M62.81 Muscle weakness (generalized) ==

== ENCOUNTER → 2021-08-03 | Outpatient (CLI) | payer MEDICARE | LOC: RAD 09:45 | PROVIDERS: ATTEND Internal Medicine | DX: Z01.818 Encounter for other preprocedural examination (principal) | CPT/HCPCS: 71046 ==

== ENCOUNTER 2021-09-16 09:56 | Outpatient (RCR) | payer MEDICARE | END 2021-09-17 | LOC: PT 09:56 | PROVIDERS: ATTEND Orthopaedic Surgery | DX: M17.11 Unilateral primary osteoarthritis, right knee (principal) ==

== ENCOUNTER 2021-10-14 09:58 | Outpatient (RCR) | payer MEDICARE | END 2021-10-18 | LOC: PT 09:58 | PROVIDERS: ATTEND Orthopaedic Surgery | DX: M17.11 Unilateral primary osteoarthritis, right knee (principal) ==

== ENCOUNTER 2021-11-09 15:00 | Outpatient (RCR) | payer MEDICARE | END 2021-11-18 | LOC: PT 15:00 | PROVIDERS: ATTEND Orthopaedic Surgery | DX: M17.11 Unilateral primary osteoarthritis, right knee (principal); M19.071 Primary osteoarthritis, right ankle and foot ==

== ENCOUNTER → 2021-12-18 | Outpatient (RCR) | payer MEDICARE | LOC: PT 11-20 07:15 | PROVIDERS: ATTEND Family Medicine Sports Medicine | DX: M25.571 Pain in right ankle and joints of right foot (principal); S93.491A Sprain of other ligament of right ankle, initial encounter; M19.071 Primary osteoarthritis, right ankle and foot; R22.41 Localized swelling, mass and lump, right lower limb; R22.42 Localized swelling, mass and lump, left lower limb ==

== ENCOUNTER 2021-12-24 11:00 | Outpatient (RCR) | payer MEDICARE | END 2022-01-18 | LOC: PT 11:00 | PROVIDERS: ATTEND Family Medicine Sports Medicine | DX: M25.571 Pain in right ankle and joints of right foot (principal); S93.491A Sprain of other ligament of right ankle, initial encounter; M19.071 Primary osteoarthritis, right ankle and foot; R22.41 Localized swelling, mass and lump, right lower limb; R22.42 Localized swelling, mass and lump, left lower limb ==

== ENCOUNTER 2022-08-05 13:50 | Outpatient (RCR) | payer MEDICARE | END 2022-08-18 | LOC: PT 13:50 | PROVIDERS: ATTEND Family Medicine Sports Medicine | DX: M47.816 Spondylosis without myelopathy or radiculopathy, lumbar region (principal) ==

== ENCOUNTER 2022-08-31 13:56 | Outpatient (RCR) | payer MEDICARE | END 2022-09-17 | LOC: PT 13:56 | PROVIDERS: ATTEND Family Medicine Sports Medicine | DX: M47.816 Spondylosis without myelopathy or radiculopathy, lumbar region (principal) ==